=== PATIENT | male | born 1970 | race Caucasian/White ===

== ENCOUNTER 2018-01-04 23:56 | Inpatient (IN) ==
[2018-01-05] MEDS ORDERED: Naloxone 0.4 MG/ML INJ IVP PRN (04:07)
[2018-01-05] MEDS ORDERED: D5% in Water 1,000 ML IVC PRN (04:14)
[2018-01-05] MEDS ORDERED: Dextrose Gel 15 GM/37.5 ML TUBE PO PRN ×2 (04:14)
[2018-01-05] MEDS ORDERED: *HR* Dextrose 50 % in Water (Syg) 50 ML SYRINGE IVP PRN (04:14)
--- NOTE | 2018-01-05 04:18 | Internal Med History&Physical ---
<Ju,Yesi - Last Filed: 01/05/18 05:40> Date of Encounter: 01/05/18 Time of Encounter: 03:00 Assessment and Plan (1) Atypical chest pain Current visit: Yes Status: Acute (2) Elevated troponin Current visit: Yes Status: Acute (3) Hypertension Current visit: No Status: Acute Qualifiers: Hypertension type: unspecified Qualified Code(s): I10 - Essential (primary ) hypertension (4) Hyperglycemia Current visit: No Status: Acute (5) Noncompliance w/medication treatment due to intermit use of medication Current visit: Yes Status: Acute (6) DVT prophylaxis Current visit: Yes Status: Acute Internal Medicine - H&P: HPI Chief complaint: chest pain History of present illness: Mr. Rivera is a 47 year old male transferred from [facility] ED after presenting with c/ o chest pain and weakness. Pt is a poor historian. Pt states his chest pain has been noticeably worse over last two weeks--he admits to chest pain for longer than 2 weeks but doesn't know when it first began and when asked to describe how his chest pain has gotten states he's just had "more chest pain." He describes chest pain as burning and sharp, it started in his left chest but has since become more centrally located on his chest and has "spread" to include his right chest. His pain is better when he sits still and doesn't exert himself , he then states the chest pain has also happened at rest. He is unable to specify how long the pain lasts for and whether or not it's constant versus intermittent. Pt admits to having shortness of breath with his chest pain and provides very nonspecific timeframe for this symptom as well--he's had periods of breathlessness prior to last two weeks, only able to specify it's been going on for "months." Denies associated nausea, vomiting, fever, chills, diaphoresis , abdominal pain. He is not compliant with taking his metformin and anti- hypertensive as prescribed and took himself off these meds--but started taking them again 2 weeks ago. Past Med Surg Social Fam HX - Past Medical History Medical history: diabetes, hyperlipidemia, hypertension, kidney stones Psychiatric history: no psych history - Past Surgical History Surgical History: no surgical history - Social History Smoking Status: Never smoker Smokeless Tobacco Status: No Alcohol use: none Drug use: none Internal Medicine - H&P: Meds Lisinopril [Zestril] 10 mg PO DAILY #30 tablet 09/13/17 [Rx] Metformin HCl [Fortamet] 500 mg PO BID 01/04/18 [History] 3 Allergy/AdvReac Type Severity Reaction Status Date / Time No Known Allergies Allergy Verified 09/13/17 02:48 All Systems PM: A 10-system review of systems was performed and is negative for pertinent findings except as documented above in the HPI. - Constitutional Vitals: Temp Pulse Resp BP Pulse Ox 98.1 F 80 28 141/96 98 01/05/18 01:20 01/05/18 01:20 01/05/18 01:20 01/05/18 01:20 01/05/18 01:20 Internal Med - H&P Results - Labs CBC & Chem 7: 01/05/18 04:28 01/05/18 04:28 <Silas Nguyen - Last Filed: 01/05/18 07:11> Date of Encounter: 01/05/18 Time of Encounter: 04:45 Assessment and Plan (1) NSTEMI (non-ST elevated myocardial infarction) Current visit: No Status: Acute 1. Heparin drip started. 2. ASA, STATIN, BB, NTG PRN. 3. Will cycle troponins and EKG's. 3. ECHO. 4. Consult cardiology as he will need further work up and likely LHC. 5. Medical non-compliance is his biggest barrier to health at the moment. (2) Hypertensive emergency Current visit: Yes Status: Acute 1. BP much better now compared to presentation at [facility] [facility]. Troponin elevation is evidence of end-organ injury. 2. Start Lopressor 25 mg BID; add hydralazine PRN for SBP > 160. 3. Close BP monitoring and medication adjustment as needed. (3) Noncompliance w/medication treatment due to intermit use of medication Current visit: Yes Status: Chronic 1. I had a long heart to heart talk with patient and his girlfriend. He needs to comply with medical advice and take an active role in his health. Otherwise , I anticipate he will not survive the next five years. Patient and girlfriend voiced understanding. (4) Hyperglycemia Current visit: No Status: Acute 1. Will place on SSI, monitor glucose, and adjust dosing as necessary. (5) DVT prophylaxis Current visit: Yes Status: Acute 1. On heparin drip. Internal Medicine - H&P: HPI Admitted From: Hospital to Hospital Transfer Plans for Post Hospital Care: Home History of present illness: Mr. Rivera is a 47 year old male who presents in transfer from [facility]. He presented there with shortness of breath, chest pain, dyspnea on exertion, and uncontrolled hypertension and uncontrolled diabetes. His presenting blood pressure was over 190 systolic and he had an elevated troponin of 0.38. Dr. Freire contacted me requesting transfer to [place] [facility]. I accepted the patient in transfer. Upon arrival, he was seen initially by my resident, Dr. Yin. I discussed the case with her and then saw patient and interviewed him independently as well. Presently, patient has no chest pain or dyspnea. His blood pressure is much better. He did receive some labetalol, insulin, and heparin IV bolus at [facility] [facility] prior to transfer. Patient has a history of hypertension and type 2 diabetes. Unfortunately, over the last 2-3 years, he has stopped taking his medications and has been very noncompliant. He was in the ER [facility] [facility] several months ago as well, and he left the hospital and signed out AMA. This time, however, he agreed to come to the hospital. I discussed with patient and his significant other at length the need to comply with healthcare, medical advice, and to treat his blood pressure and diabetes with care. I emphasized to him that he has multiple risk factors for an ID and stroke and thereof. Patient voiced understanding, but I'm not convinced he will comply with healthcare advice in the future. Past Med Surg Social Fam HX - Past Medical History Attestation: Yes The following information was validated with the patient. Source: patient, old records reviewed Medical history: diabetes, hyperlipidemia, hypertension, kidney stones Psychiatric history: no psych history - Past Surgical History Surgical History: no surgical history - Social History Smoking Status: Never smoker Smokeless Tobacco Status: No Alcohol use: none Drug use: none Occupational status: employed Current living situation: Home, With Family Activity Level: Independent ambulation Recent Out of Country Travel Within the Last 8 Weeks: No - Family History Mother Hx Family Cardiac Disorders: Yes Hx Family Endocrine Disorder: No Father Hx Family Cardiac Disorders: Yes Hx Family Respiratory Disorders: Yes - Constitutional Constitutional: fatigue, no chills, no fever(s), no night sweats - EENT Eyes: no blurry vision, no change in vision Ears: no ear pain, no tinnitus Nose, mouth and throat: no nasal congestion, no sinus pressure, no sore throat - Cardiovascular Cardiovascular ROS IM: chest pain, diaphoresis, dyspnea, dyspnea on exertion, no lightheadedness, no palpitations, no paroxysmal nocturnal dyspnea, no syncope - Respiratory Respiratory: no cough, no hemoptysis, no chest congestion - Gastrointestinal Gastrointestinal: no abdominal pain, no diarrhea, no hematemesis, no hematochezia, no melena, no vomiting - Genitourinary Genitourinary ROS male: no dysuria, no flank pain, no hematuria - Musculoskeletal Musculoskeletal ROS IM: no arthralgias, no back pain - Integumentary Integumentary IM: no rash, no jaundice - Neurological Neurological ROS: no dizziness, no focal weakness, no frequent falls, no headache(s) - Psychiatric Psychiatric: no anxiety, no depression - Endocrine Endocrine IM: polydipsia, polyuria, no polyphagia - Hematologic/Lymphatic Hematologic/Lymphatic: no lymphadenopathy - Allergic/Immunologic Allergic/Immunologic: no wheezing, no GI upset with certain foods - Constitutional Vitals: Temp Pulse Resp BP Pulse Ox 97.6 F 74 20 135/87 98 01/05/18 04:51 01/05/18 04:51 01/05/18 04:51 01/05/18 04:51 01/05/18 04:51 General appearance: Present: cooperative, A&O X 3, pleasant, no acute distress, answers questions appropriately - Head Head exam: Present: normal inspection - Eye Eye exam: Present: EOMI, PERRL. Absent: scleral icterus Pupils: Present: normal accommodation - ENT ENT exam: Present: mucous membranes dry, normal exam - Neck Neck exam general surgery: Present: full ROM, supple. Absent: tenderness, thyromegaly - Respiratory Respiratory exam: Present: CTAB. Absent: chest wall tenderness, rales, respiratory distress, rhonchi, wheezes - Cardiovascular Cardiovascular exam: Present: RRR, +S1, +S2, systolic murmur (grade 2 ). Absent : diastolic murmur - GI/Abdominal GI/Abdominal exam: Present: normal bowel sounds, soft. Absent: hepatomegaly, splenomegaly, tenderness - Extremities Exam Extremities exam: Present: full ROM, normal capillary refill, warm, radial pulses palpable and symmetrical. Absent: calf tenderness, joint swelling, pedal edema, tenderness - Back Exam Back exam: Present: normal inspection. Absent: CVA tenderness (L), CVA tenderness (R) - Neurological Exam Neurological exam: Present: alert, CN II-XII intact, oriented X3, no focal deficits - Psychiatric Psychiatric exam: Present: flat affect - Skin Skin exam: Present: dry, warm. Absent: rash Internal Med - H&P Results - Labs CBC & Chem 7: 01/05/18 04:28 01/05/18 04:28 Labs: Short CBC 01/05/18 Range/Units 04:28 WBC 8.5 (4.3-11.1) K/mcL Hgb 13.6 D (12.9-16.9) g/dL Hct 37.9 (37.5-50.1) % Plt Count 224 (140-400) K/mcL Neutrophils # 5.1 (1.6-8.9) K/mcL BMP 01/05/18 04:28 Sodium 135 L Potassium 3.8 Chloride 103 Carbon Dioxide 23 BUN 24 H Creatinine 0.85 Glucose 290 H Calcium 8.9 Cardiac Enzymes 01/05/18 Range/Units 04:28 Troponin I 0.41 H* (< 0.04) ng/mL - EKG Data -: EKG Interpreted by Myself EKG shows normal: sinus rhythm - EKG Data Prior EKG available for review: no EKG comments: 01/05/18 06:57 NSR with LVH and subtle ST-T changes laterally - Diagnostic Studies Chest x-ray Status: image reviewed by me (negative)
[2018-01-05 04:38] LABS: Basophils # 0.1 K/mcL (0.0-0.2); Basophils % 0.9 %; Eosinophils # 0.2 K/mcL (0.0-0.6); Eosinophils % 1.9 %; Hematocrit 37.9 % (37.5-50.1); Hemoglobin 13.6 g/dL (12.9-16.9); Immature Granulocytes % 0.6 % (0-4); Lymphocytes # 2.5 K/mcL (0.6-4.6); Lymphocytes % 29.2 %; Mean Corpuscular HGB Conc 35.9 g/dL (31.6-35.5); Mean Corpuscular Hemoglobin 28.6 pg (28.0-33.3); Mean Corpuscular Volume 79.6 fL (83.0-100.0); Mean Platelet Volume 11.4 fL (9.4-12.4); Monocytes # 0.6 K/mcL (0.0-1.3); Monocytes % 6.5 %; Neutrophils # 5.1 K/mcL (1.6-8.9); Platelet Count 224 K/mcL (140-400); Red Blood Count 4.76 M/mcL (4.19-5.50); Red Cell Distribution Width 12.6 % (11.5-14.5); Segmented Neutrophils % 60.9 %
[2018-01-05 05:05] LABS: BUN/Creatinine Ratio 28 (6-26); Blood Urea Nitrogen 24 mg/dL (6-20); Calcium 8.9 mg/dL (8.6-10.3); Carbon Dioxide 23 mEq/L (23-29); Chloride 103 mEq/L (98-107); Glucose 290 mg/dL (70-105); Osmolality,Calculated 295 (280-300); Potassium 3.8 mEq/L (3.5-5.1); Sodium 135 mEq/L (136-145); eGFR For African Americans > 60 (> 60); eGFR For Non-African Americans > 60 (> 60)
[2018-01-05] MEDS ORDERED: *HR* Heparin 5,000 UNIT/ML VIAL SQ SCH (06:00)
[2018-01-05] MEDS ORDERED: *HR* Heparin 5,000 UNIT/ML VIAL IVP PRN ×2 (06:07)
[2018-01-05] MEDS: Insulin LISPRO 300 UNITS/3 ML VIAL SQ SCH ×3 (06:38→18:29)
[2018-01-05 06:39] LABS: Hematocrit 37.8 % (37.5-50.1); Hemoglobin 13.4 g/dL (12.9-16.9); Mean Corpuscular HGB Conc 35.4 g/dL (31.6-35.5); Mean Corpuscular Hemoglobin 28.4 pg (28.0-33.3); Mean Corpuscular Volume 80.1 fL (83.0-100.0); Mean Platelet Volume 11.5 fL (9.4-12.4); Platelet Count 207 K/mcL (140-400); Red Blood Count 4.72 M/mcL (4.19-5.50); Red Cell Distribution Width 12.7 % (11.5-14.5)
[2018-01-05] MEDS: Heparin 25,000 UNIT/500 ML D5W 25,000 UNIT/500 ML BAG IVC SCH (06:40)
[2018-01-05 06:45] LABS: Prothrombin Time 10.9 Seconds (9.4-12.1)
[2018-01-05 06:47] LABS: Activated Partial Thrombo Time 29.4 Seconds (26.0-36.0)
[2018-01-05] MEDS: Aspirin Enteric Coated 81 MG Tablet PO SCH (08:54)
[2018-01-05 09:29] LABS: Hemoglobin A1C 10.1 %
--- NOTE | 2018-01-05 09:54 | Cardiology Consult Note ---
<Cayla Segundo - Last Filed: 01/05/18 09:52> Date of Encounter: 01/05/18 Time of Encounter: 08:30 Assessment and Plan (1) NSTEMI (non-ST elevated myocardial infarction) Current Visit: No Status: Acute Per cardiology: -Admitted with typical chest pain symptoms. -Troponins 0.38, 0.41. -On asa, statin, beta pauline, heparin drip. -ECG with SR, ST depressions noted V3, V4. -TTE pending. -Denies current chest pain. -Recommend LHC. Risks versus benefits of LHC explained to patient. Patient states understanding and agreeable to proceed. -Of note, patient reports recently quit taking medications. Discussed with patient regarding possible need for dual anti-platelet therapy uninterrupted for at least one year pending LHC results. Patient states understanding and states he would be compliant with medications if needed. -Further recommendations pending LHC. Discussion w patient/family: The assessment and plan as outlined above was discussed with the patient who expressed understanding and agreement. All questions were answered. Thank you for involving us in the care of your patient. Please call with any questions. Discussed and reviewed with Dr.John Ribera. History of Present Illness Consult date: 01/05/18 Requesting physician: Yesi Dodd Consult reason: NSTEMI Chief complaint: chest pain History of present illness: Mr. Rivera is a 47 year old male with a relevant past medical history of DM, HTN, hyperlipidemia. Patient presented to [facility] with complaints of intermittent exertional chest pain for the past couple of weeks. Patient reports pain relieved with rest. Also reports associated dyspnea on exertion and increased fatigue. Denies current chest pain. Of note, pateint reports recently quit taking his DM and HTN medications because he "felt like I didn't need them." Past Med Surg Social Fam HX - Past Medical History Attestation: Yes The following information was validated with the patient. Source: patient, old records reviewed Medical history: diabetes, hyperlipidemia, hypertension, kidney stones Psychiatric history: no psych history - Past Surgical History Surgical History: no surgical history - Social History Smoking Status: Never smoker Smokeless Tobacco Status: No Alcohol use: none Drug use: none - Family History Mother Hx Family Cardiac Disorders: Yes Hx Family Endocrine Disorder: No Father Hx Family Cardiac Disorders: Yes Hx Family Respiratory Disorders: Yes Medications and Allergies Metformin HCl [Fortamet] 500 mg PO BID 01/04/18 [History] Lisinopril-HCTZ 20-12.5 [Prinzide 20-12.5] 1 tab PO DAILY 01/05/18 [History] Omeprazole [PriLOSEC] 20 mg PO DAILY 01/05/18 [History] 3 Allergy/AdvReac Type Severity Reaction Status Date / Time No Known Allergies Allergy Verified 01/05/18 09:12 All Systems Review: The remainder of the systems were reviewed and are negative - Constitutional Constitutional: fatigue - Cardiovascular Cardiovascular: as per HPI, chest pain with exertion, dyspnea on exertion Physical Examination Vital Signs, Last 4 Hours Temp Pulse Resp BP Pulse Ox 01/05/18 07:23 97.4 F L 67 17 138/86 96 General: Conversant, No Apparent Distress HEENT: Atraumatic, Normocephaly, Mucus Membranes Moist Neck: No JVD, Normal carotid pulses Cardiac: Reg Rate and Rhythm, Normal S1 and S2, No Murmur Lungs: Normal Breath Sounds, No Wheeze, Rales, Rhonchi Neuro: Alert and responsive, No focal deficits noted Abdomen: Soft, Non-Tender Skin: No rashes noted on visualized skin Musculoskeletal: No Chest Wall Tenderness Extremities: No Clubbing, No Cyanosis, No Edema, Normal Pulses Results 01/05/18 06:17 01/05/18 04:28 Lab Results Active Medications Aspirin (Aspirin Ec) 81 mg PO DAILY ESPINOZA Stop: 07/07/18 09:01 Last Admin: 01/05/18 08:54 Dose: 81 mg Atorvastatin Calcium (Lipitor) 80 mg PO HS ESPINOZA Stop: 07/07/18 21:01 Dextrose/Water (Dextrose 50% (Syg)) 25 ml IVP AD PRN PRN Reason: Hypoglycemia Stop: 07/07/18 04:15 Glucagon (Glucagen) 1 mg IM ONCE PRN PRN Reason: Hypoglycemia Stop: 07/07/18 04:15 Glucose (Gluctose) 15 gm PO ONCE PRN PRN Reason: Hypoglycemia Stop: 07/07/18 04:15 Glucose (Gluctose) 30 gm PO ONCE PRN PRN Reason: Hypoglycemia Stop: 07/07/18 04:15 Heparin Sodium (Porcine) (Heparin) 4,000 unit IVP Q6HR PRN PRN Reason: SEE COMMENTS Stop: 07/07/18 06:08 Heparin Sodium (Porcine) (Heparin) 2,000 unit IVP Q6H PRN PRN Reason: SEE COMMENTS Stop: 07/07/18 06:08 Hydralazine HCl (Hydralazine) 10 mg IVP Q6HR PRN PRN Reason: Hypertension Stop: 07/07/18 05:02 Dextrose (Dextrose 5%) 1,000 mls @ 100 mls/hr IVC .Q10H PRN PRN Reason: HYPOGLYCEMIA Stop: 07/07/18 04:15 Heparin Sodium/Dextrose (Heparin 25,000 Unit/500 Ml D5w) 25,000 unit in 500 mls @ 20.01 mls/hr IVC .Q24H ESPINOZA; 10.2 UNIT/KG/HR PRN Reason: Protocol Stop: 07/07/18 06:16 Last Admin: 01/05/18 06:40 Dose: 10.2 unit/kg/hr, 20.01 mls/hr Insulin Human Lispro (Humalog) 0 units SQ Q6HR ESPINOZA PRN Reason: Protocol Stop: 07/07/18 06:01 Last Admin: 01/05/18 06:38 Dose: 8 units Metoprolol Tartrate (Lopressor) 25 mg PO BID ESPINOZA Stop: 07/07/18 09:01 Last Admin: 01/05/18 08:54 Dose: 25 mg Naloxone HCl (Narcan) 0.4 mg IVP Q2MIN PRN PRN Reason: SEE COMMENTS Stop: 07/07/18 04:08 Laboratory Tests 01/04/18 01/05/18 01/05/18 22:04 04:28 04:28 Hgb 13.6 D Creatinine Troponin I 0.38 H* 0.41 H* 01/05/18 04:28 Hgb Creatinine 0.85 Troponin I - Imaging and Cardiology Chest Xray: report reviewed Echo: pending Cardiac cath: pending - EKG Interpretation EKG results cardiology: personally reviewed (ECG with SR, ST depressions noted in leads V3 and V4.), other (Telemetry reviewed with average HR previous 12 hours noted to be 71, SR. PVCs noted.) Consult Discharge Plan - Plan Referrals: Mary Bland, [facility] [Primary Care Provider] - Louis Price CNP [Family Provider] - <Peyman Ribera - Last Filed: 01/05/18 11:23> Date of Encounter: 01/05/18 - Attending Attestation I have personally performed a face to face evaluation on this patient. I have reviewed and agree with the care plan. History and Exam by me shows: Chest pain, abnormal enzymes. Multiple risk factors for CAD. Recommend left heart cath, he agrees. Assessment and Plan Discussion w patient/family: The assessment and plan as outlined above was discussed with the patient and/or family members who expressed understanding and agreement. All questions were answered. Thank you for involving us in the care of your patient. Please call with any questions. History of Present Illness History of present illness: Mr. Rivera is a 47 year old male All Systems Review: The remainder of the systems were reviewed and are negative Physical Examination Vital Signs, Last 4 Hours Temp Pulse Resp BP Pulse Ox 01/05/18 10:57 97.6 F 60 17 126/80 97 01/05/18 07:23 97.4 F L 67 17 138/86 96 Results 01/05/18 06:17 01/05/18 04:28 Lab Results 01/05/18 01/05/18 01/05/18 04:28 04:28 04:28 WBC 8.5 Hgb 13.6 D Hct 37.9 Plt Count 224 INR APTT Sodium 135 L Potassium 3.8 Chloride 103 Carbon Dioxide 23 BUN 24 H Creatinine 0.85 Glucose 290 H Calcium 8.9 Troponin I 0.41 H* 01/05/18 01/05/18 01/05/18 06:17 06:17 09:52 WBC 8.0 Hgb 13.4 Hct 37.8 Plt Count 207 INR 1.0 APTT 29.4 Sodium Potassium Chloride Carbon Dioxide BUN Creatinine Glucose Calcium Troponin I 0.37 H*
[2018-01-05] MEDS ORDERED: 0.9 % Sodium Chloride 1,000 ML ONE ×2 (12:48→13:16)
[2018-01-05] MEDS ORDERED: *HR* Heparin 10,000 UNIT/10 ML VIAL ONE (12:48)
[2018-01-05] MEDS ORDERED: ISOVUE-370 200 ML INFUS..BTL IV ONE (12:48)
[2018-01-05] MEDS ORDERED: Heparin 1,000 UNITS/500 mL 500 ML ONE (12:48)
[2018-01-05] MEDS ORDERED: Verapamil 5 MG/2 ML VIAL ONE (13:17)
[2018-01-05] MEDS ORDERED: Nitroglycerin 1,000 MCG/10 ML VIAL IV ONE (13:17)
[2018-01-05] MEDS ORDERED: *HR* Midazolam HCl 2 MG/2 ML VIAL ONE (13:19)
[2018-01-05] MEDS ORDERED: *HR* FentaNYL (PF) 100 MCG/2 ML VIAL ONE (13:20)
--- NOTE | 2018-01-05 13:33 | Pre-Sedation Evaluation ---
Pre-sedation evaluation - Pre-sedation checklist Date of procedure: 01/05/18 Procedure: heart cath Recent Vitals: Last Vital Signs Temp 97.6 F 01/05/18 10:57 Pulse 60 01/05/18 10:57 Resp 17 01/05/18 10:57 BP 126/80 01/05/18 10:57 Pulse Ox 97 01/05/18 10:57 H&P (including ROS) documented in medical record: Yes Previous reaction to sedatives/anesthetics: No Dietary Status: NPO after Midnight Dentition: No loose teeth or bridges ASA Classification *see protocol: CLASS II-Mild systemic disease Plan of Care: Pt appropriate candidate for procedure/moderate/conscious sedation , Risks/benefits of procedure/sedation discussed w/ patient/family
--- NOTE | 2018-01-05 14:18 | Invasive Diagnostic Lab Proc ---
Name: Moise Rivera Date of Study: 01/05/2018 Date: 1970 Ht: 72.8in Medical Record#: [id number] Age: 47 Wt: 216.05lb Gender: Male BSA: 2.22 Order #: [id number] BMI: 28.63 Physicians Procedure Physician: Josh Loera MD, FACC Referring MD: Louis Price, [employer]PAREL PATTERNMAKER Referring MD: Staff Name Position Time In Pavel Quigley RN Monitor 01:23 PM Kiki Peterson RN Basket Turner 01:23 PM Grey Hodges RN Basket Turner 01:23 PM Roberto Ayoub RT (R) Scrub 01:23 PM Indications Indication Non-Stemi Procedures Performed Procedure L HRT ARTERY/VENTRICLE ANGIO Pre-Procedure Checklist Informed consent is complete signed and on chart. H&P is on chart. ID band is on and ID verified with patient. Patient NPO for procedure The procedure was described for the patient and questions were answered. Blood Pressure: 138/86 ECG is on chart. Rhythm: NSR Plan of Care Patient will tolerate the procedure without complications. Adequate level of comfort will be maintained. Hemodynamics will remain stable Patient will recover from procedure without complications. Respiratory function will be maintained. Cardiac rhythm will remain stable. Patient temperature will be maintained. Patient and/or family have verbalized understanding of the procedure. Patient Education Chief Complaint/Reason for Test: Cardiac Cath Developmental Category: Adult (18-64 years) Developmentally Appropriate for Age: Yes Learning Barriers: None Education Needs: Procedure Education Method: Verbal Information Taught: Cardiac Cath Educational Evaluation: Able to repeat information Intravenous Access Time IV Size Location DC'd Fluid/Drip Rate Units RN 12:49 PM 20g 1 /" Patent On Arrival Rt Antecubital 0.9NaCl 25 ml/hr Kiki Peterson RN Allergies No Known Allergies Vital Signs Time BP (mmHg) HR (bpm) O2 Sat. RR (bpm) LOC 12:50 PM 138 / 86 67 96 % 16 5 = Fully awake and oriented or at pre-proc level 01:24 PM / % 5 = Fully awake and oriented or at pre-proc level 01:24 PM / % 5 = Fully awake and oriented or at pre-proc level 01:39 PM / % 4 = Oriented but drowsy 01:27 PM 163 / 117 70 100 % 29 01:31 PM 141 / 99 72 99 % 18 01:36 PM 137 / 90 66 99 % 19 01:41 PM 137 / 88 68 98 % 14 01:46 PM 127 / 78 67 97 % 13 01:51 PM 135 / 89 68 98 % 16 01:56 PM 131 / 89 67 98 % 13 02:01 PM 135 / 90 68 98 % Procedural Medications Time Medication Dose Units Method Given By 01:23 PM Oxygen 2 L/min nasal cannula Kiki Peterson RN 01:29 PM Versed 2 mg Intravenous Grey Hodges RN 01:31 PM Fentanyl 50 mcg Intravenous Grey Hodges RN 01:39 PM Lidocaine 2% 0.5 ml Subcutaneous Josh Loera MD, FAC 01:41 PM Heparin 2000 units Nitroglycerin 200 mcg Verapamil 2.5 mg Intraarterial Josh Loera MD, [facility] ASA Classification: CLASS II- Mild systemic disease (i.e. well-controlled diabetes, hypertension, asthma, cigarette smoking) Aishwarya Score Preprocedure Postprocedure Activity 2- Moves 4 extremities sustained head lift Activity 2- Moves 4 extremities sustained head lift Circulation 2- SBP +/= 20 points of pre-anesthetic level Circulation 2- SBP +/= 20 points of pre-anesthetic level Consciousness 2- Awake and alert oriented x 3 Consciousness 2- Awake and alert oriented x 3 O2 Saturation 2- Able to maintain O2 satruation of 92% on room air O2 Saturation 2- Able to maintain O2 satruation of 92% on room air Respiratory 2- Able to deep breathe and cough well Respiratory 2- Able to deep breathe and cough well Total Score 10 Total Score 10 Contrast Agent: Isovue Diagnostic Contrast: 47 ml Total Contrast: 47 ml Fluoro Dose: 381 mGy Procedure Log Time Note Enter By 01:17 PM CathStat 01:23 PM Pt arrived to slab installer 2 at 13:23 csmith 01:23 PM Pavel Quigley RN Position: Monitor Time in: 13:23 csmith 01:23 PM Kiki Peterson RN Position: Basket Turner Time in: 13:23 csmith 01:23 PM Grey Hodges RN Position: Basket Turner Time in: 13:23 csmith 01:23 PM Roberto Ayoub RT (R) Position: Scrub Time in: 13:23 csmith 01:23 PM Patient charges- Angio tray pack, Navilyst 3mm J, Pulse Oximetry and ACIST tubing and transducer csmith 01:23 PM Hair removed from procedure site in procedure lab using clippers. Right wrist & right groin prepped with Chloraprep by Grey Hodges RN, then patient was draped. Skin intact. csmith : PM Physician arrived : csmith : PM Meet and greet completed csmith : PM Sign in performed according to hospital policy. csmith : PM Procedure start : csmith : PM Time: : Oxygen on at 2 L/min per nasal cannula by Kiki Peterson RN csmith : PM Time: 13: Patient comfortable and pain free: Yes csmith : PM Time: :LOC: 5 = Fully awake and oriented or at pre-proc level csmith : PM NTG paste removed from chest csmith : PM Case Start : PM Vitals capture started with the following parameters, Patient=Adult, Interval=5 min, Initial Vvifcoev=197 mmHg, Deflation Rate=5 mmHg, Cuff placed on Right Arm 01: PM Vitals capture started with the following parameters, Patient=Adult, Interval=5 min, Initial Rsnvymzc=761 mmHg, Deflation Rate=5 mmHg, Cuff placed on Right Arm 01:27 PM HR=70 bpm, MEKO=128/117 mmhg, MdJ1=328.0 %, Resp=29 B/min 01:31 PM HR=72 bpm, TTCX=921/99 mmhg, SpO2=99.0 %, Resp=18 B/min 01:31 PM Time: 13:29 Versed 2 mg Intravenous Given by Grey Hodges RN csmith :31 PM Time: 13:31 Fentanyl 50 mcg Intravenous Given by Grey Hodges RN csmith 01:36 PM HR=66 bpm, HHEA=773/90 mmhg, SpO2=99.0 %, Resp=19 B/min, Comment=nsr 01:37 PM Pressure channel 1 zeroed. :39 PM Time: :24LOC: 5 = Fully awake and oriented or at pre-proc level csmith :39 PM Time: 13:23 Patient comfortable and pain free: Yes csmith :39 PM Time out performed according to hospital policy csmith :39 PM Time: 13:39 0.5 ml Lidocaine 2% to right radial Subcutaneous Given by Josh Loera MD, [facility] csmith 01:41 PM Access obtained by percutaneous puncture. 5/6Fr 11cm Terumo Glidesheath sheath placed in right radial artery. [id number] csmith 01:41 PM Time: 13:41 Patient given 2000 units Heparin, 200 mcg Nitroglycerin, and 2.5 mg Verapamil Intraarterial by Josh Loera MD, [facility]. This is given to reduce risk of vessel spasm and thrombosis. csmith 01:41 PM HR=68 bpm, IKQM=929/88 mmhg, SpO2=98.0 %, Resp=14 B/min, Comment=nsr 01:42 PM 5Fr TIG catheter inserted over the wire [facility] csmith 01:42 PM 0.035 260cm Navilyst 3mmJ wire [id number] csmith 01:43 PM Recorded Pressure: Ao, HR=68, Condition=Condition 1 (Aorta) Ao 92/66/80 01:44 PM Catheter removed csmith 01:44 PM 5Fr AR1 catheter inserted over the wire [id number] csmith 01:46 PM HR=67 bpm, ELEM=784/78 mmhg, SpO2=97.0 %, Resp=13 B/min, Comment=sr 01:48 PM Lesion found in Proximal RCA. Pre Stenosis: 70 Pre AUREA Flow: 3: Complete and Brisk Flow/Perfusion csmith 01:48 PM Lesion found in Mid RCA. Pre Stenosis: 60 Pre AUREA Flow: 3: Complete and Brisk Flow/Perfusion csmith 01:48 PM Lesion found in Distal RCA. Pre Stenosis: 95 Pre AUREA Flow: 3: Complete and Brisk Flow/Perfusion csmith 01:48 PM Catheter removed csmith 01:49 PM 5Fr FL3.5 catheter inserted over the wire [id number] csmith 01:49 PM Coronary Dominance: right csmith 01:51 PM LCA angiography performed in multiple views. csmith 01:51 PM Conversation between Interventionalist and CT Surgeon. csmith 01:51 PM HR=68 bpm, SGVZ=765/89 mmhg, SpO2=98.0 %, Resp=16 B/min 01:51 PM Lesion found in Proximal LAD. Pre Stenosis: 95 Pre AUREA Flow: 3: Complete and Brisk Flow/Perfusion csmith 01:51 PM Lesion found in Mid LAD. Pre Stenosis: 70 Pre AUREA Flow: 3: Complete and Brisk Flow/Perfusion csmith 01:51 PM Lesion found in Mid Circumflex. Pre Stenosis: 95 Pre AUREA Flow: 3: Complete and Brisk Flow/Perfusion csmith 01:52 PM Catheter removed csmith 01:53 PM [address] case with Dr. Jj csmith 01:54 PM Time: 13:39 Patient comfortable and pain free: Yes csmith 01:54 PM Time: 13:39LOC: 4 = Oriented but drowsy csmith 01:55 PM Pressure channel 1 zero failed. 01:55 PM Pressure channel 1 zeroed. 01:55 PM 5Fr Pigtail catheter inserted over the wire DNC csmith 01:55 PM Recorded Pressure: LV, HR=71, Condition=Condition 1 (Left Ventricle) LV 136/10/19 01:55 PM Bolus angiogram of left Ventricle complete: 10 ml/sec for a total of 30 mls csmith 01:56 PM Catheter removed csmith 01:56 PM HR=67 bpm, VOXC=708/89 mmhg, SpO2=98.0 %, Resp=13 B/min 01:56 PM Recorded Pressure: LV, Ao, HR=65, Condition=Condition 1 (Left Ventricle) LV 134/11/23, (Aorta) Ao 149/99/120 01:57 PM Wire removed csmith 02:01 PM HR=68 bpm, EQOB=175/90 mmhg, SpO2=98.0 % 02:02 PM Procedure completed at 14:02 csmith 02:02 PM Did you address AUREA flow and Dominance? Yes csmith 02:03 PM Sign out completed: Radiation Dose 381 mGy Fluoro Time: 4.4 Isovue 370 - 200ml contrast 47 ml given by Josh Loera MD, [facility]. Complications: NoneCardiac Rehab Consult needed: YesConfirmed administered medications: Yes csmith 02:03 PM Isovue 370 - 200ml,1 Bottle(s) used. csmith 02:03 PM Arterial sheath pulled, Vasc Band closure device used and was Successful S/N. csmith 02:03 PM 13 ml air in Vasc Band. csmith 02:03 PM Estimated Blood Loss: minimal csmith 02:03 PM Post ECG NSR csmith 02:03 PM Post Blood Pressure 135/90 csmith 02:03 PM 14:03 Post Pulses Right radial 2+ csmith 02:03 PM Information taught Cardiac Cath and Vasc Band csmith 02:03 PM Education needs Responsibilities of Patient in Care csmith 02:03 PM Learning barriers :None csmith 02:03 PM Education Methods Verbal csmith 02:03 PM Education evaluation Able to repeat information csmith 02:04 PM Site status No bleeding/hematoma - Rt Wrist as reported by Roberto Ayoub RT (R) at 14:03 csmith 02:04 PM Plavix, Effient or Brilinta given No csmith 02:05 PM Family placed in consult room. csmith Complications Complication None Hemodynamics Pressures Site Systolic/A Wave Diastolic/V Wave Mean AO 92 66 80 LV 136 10 19 LV 134 11 23 AO 149 99 120 Post Procedure Information Blood Pressure: 135/90 mmHg Rhythm: NSR Post procedural instructions were given Surgery consult for CABG Closure Device Time Device Success/Fail Mechanical Compression Successful Site Checks Time Location Status Staff Sheath In? Note 02:03 PM Rt Wrist No bleeding/hematoma Roberto Ayoub RT (R) Pulses Time Site Pre-Procedure Post-Procedure Note 01/05/2018 12:49:00 PM Bilateral DP & PT & radial 2+ 2:03:00 PM Right radial 2+ Updated by Pavel Quigley RN on 01/05/2018 2:09:52 PM electronically signed on 01/05/2018 2:10:36 PM with status of Final
[2018-01-05] MEDS ORDERED: Insulin LISPRO 300 UNITS/3 ML VIAL SQ SCH (21:00)
[2018-01-06 05:23] LABS: BUN/Creatinine Ratio 20 (6-26); Blood Urea Nitrogen 18 mg/dL (6-20); Calcium 8.8 mg/dL (8.6-10.3); Carbon Dioxide 27 mEq/L (23-29); Chloride 103 mEq/L (98-107); Glucose 203 mg/dL (70-105); Osmolality,Calculated 292 (280-300); Sodium 137 mEq/L (136-145); eGFR For African Americans > 60 (> 60); eGFR For Non-African Americans > 60 (> 60)
[2018-01-06] MEDS: Heparin 25,000 UNIT/500 ML D5W 25,000 UNIT/500 ML BAG IVC SCH (05:29)
--- NOTE | 2018-01-06 08:02 | Cardiology Progress Note ---
Date of Encounter: 01/06/18 Time of Encounter: 08:00 Assessment and Plan (1) NSTEMI (non-ST elevated myocardial infarction) Current Visit: Yes Status: Acute Per cardiology: -Admitted with typical chest pain symptoms. -Troponins 0.38, 0.41. -On asa, statin, beta pauline, heparin drip. -ECG with SR, ST depressions noted V3, V4. -TTE EF 50%, Mild segmental left ventricular systolic dysfunction, Mild asymmetric hypertrophy of the basal septum. No obstruction, Mild LVDD. Atypical septal motion consistent with bundle branch block. Normal right ventricular structure and function. No evidence of pulmonary hypertension. No significant valvular dysfunction. -Denies current chest pain. -S/P LHC yesterday with reported 3 vessel CAD. Final cath report pending. CT surgery recommended, not yet evaluated. -Anticipate sign off once seen and evaluated by CT surgery. (2) CAD (coronary artery disease) Current Visit: Yes Status: Acute Per cardiology: -As above, LHC yesterday with 3 vessel CAD, CT surgery recommended. -ASA, Statin, BB. Qualifiers: Coronary Disease-Associated Artery/Lesion type: [place] artery [place] vs. transplanted heart: [place] heart Associated angina: angina presence unspecified Qualified Code(s): I25.10 - Atherosclerotic heart disease of [place] coronary artery without angina pectoris Discussion w patient/family: The assessment and plan as outlined above was discussed with the patient and/or family members who expressed understanding and agreement. All questions were answered. Thank you for involving us in the care of your patient. Please call with any questions. I will discuss all the above with Dr. Peyman Ribera and make changes as necessary. Subjective Principal diagnosis: NSTEMI, CAD Interval history: S/P LHC yesterday for NSTEMI. LHC reportedly showed [address] surgery consult recommended. Final cath report is pending. TTE EF 50%, Mild segmental left ventricular systolic dysfunction, Mild asymmetric hypertrophy of the basal septum. No obstruction, Mild LVDD. Atypical septal motion consistent with bundle branch block. Normal right ventricular structure and function. No evidence of pulmonary hypertension. No significant valvular dysfunction. Pt denies chest pain overnight. Denies dyspnea at rest, but reports dyspnea on exertion. Objective Vital Signs, Last 4 Hours Temp Pulse Resp BP Pulse Ox 01/06/18 07:14 98.0 F 59 16 132/83 98 03/10/18 04:13 97.8 F 69 17 136/93 96 Vital Signs Temp Pulse Resp BP Pulse Ox 01/06/18 07:14 98.0 F 59 16 132/83 98 01/06/18 04:13 97.8 F 69 17 136/93 96 01/05/18 23:28 97.8 F 65 16 137/89 96 01/05/18 20:17 97.7 F 67 18 146/93 95 01/05/18 18:07 98 F 66 18 127/81 95 01/05/18 16:12 98.0 F 62 16 116/75 97 01/05/18 16:03 98 F 62 18 116/75 95 01/05/18 15:30 98 F 63 18 129/88 95 01/05/18 15:00 98 F 69 18 149/91 95 01/05/18 14:25 98 F 66 16 133/86 95 01/05/18 12:15 98 F 66 16 125/86 01/05/18 10:57 97.6 F 60 17 126/80 97 Intake and Output 01/05/18 01/06/18 01/06/18 23:59 07:59 15:59 Intake Total 944 / 944 356 / 356 Balance 944 / 944 356 / 356 Intake: IV Fluids 144 / 144 356 / 356 Heparin 25,000 UNIT/500 ML D5W 144 / 144 356 / 356 25,000 unit In 500 ml @ 10.2 UNIT/KG/HR 20.01 mls/hr IVC . Q24H [facility] Rx#:[id number] Free Water 800 / 800 Other: # Voids 0 # Bowel Movements 0 Weight 96.785 kg Blood Glucose* 213 244 Patient Weight 01/06/18 23:59 Weight 96.785 kg General: Conversant, No Apparent Distress HEENT: Atraumatic, Normocephaly, Mucus Membranes Moist Neck: No JVD, Normal carotid pulses Cardiac: Reg Rate and Rhythm, Normal S1 and S2, No Murmur Lungs: Normal Breath Sounds, No Wheeze, Rales, Rhonchi Neuro: Alert and responsive, No focal deficits noted Abdomen: Soft, Non-Tender Skin: Other (right radial access site healing well. No bleeding, hematoma or ecchymosis noted.) Musculoskeletal: No Chest Wall Tenderness Extremities: No Clubbing, No Cyanosis, No Edema, Normal Pulses Results 01/05/18 06:17 01/06/18 04:03 Lab Results 01/05/18 01/05/18 01/05/18 09:52 13:02 15:33 APTT 39.2 H Sodium Potassium Chloride Carbon Dioxide BUN Creatinine Glucose Calcium Troponin I 0.37 H* 0.41 H* 01/05/18 01/06/18 01/06/18 21:09 04:03 04:03 APTT 38.9 H 60.6 H D Sodium 137 Potassium 4.0 Chloride 103 Carbon Dioxide 27 BUN 18 Creatinine 0.90 Glucose 203 H Calcium 8.8 Troponin I BMP 01/06/18 Range/Units 04:03 Sodium 137 (136-145) mEq/L Potassium 4.0 (3.5-5.1) mEq/L Chloride 103 (98-107) mEq/L Carbon Dioxide 27 (23-29) mEq/L BUN 18 (6-20) mg/dL Creatinine 0.90 (0.70-1.30) mg/dL Glucose 203 H (70-105) mg/dL Calcium 8.8 (8.6-10.3) mg/dL Cardiac Enzymes 01/05/18 01/05/18 Range/Units 15:33 09:52 Troponin I 0.41 H* 0.37 H* (< 0.04) ng/mL Impressions Echocardiogram 01/05/18 04:32 Impressions: LVEF 50%. Normal LV chamber size and function. Mild segmental left ventricular systolic dysfunction. Mild asymmetric hypertrophy of the basal septum. No obstruction. Mild left ventricular diastolic dysfunction. Atypical septal motion consistent with bundle branch block. Normal right ventricular structure and function. No evidence of pulmonary hypertension. No significant valvular dysfunction. Left Ventricular Wall Motion: Rest Echo Findings The apical septal and mid anterior septal taylor were hypokinetic. All other wall segments showed normal motion. Findings: Study Quality * Technically adequate exam. ECG Findings * Normal sinus rhythm. Left Ventricle Active Medications Aspirin (Aspirin Ec) 81 mg PO DAILY ESPINOZA Stop: 07/07/18 09:01 Last Admin: 01/05/18 08:54 Dose: 81 mg Atorvastatin Calcium (Lipitor) 80 mg PO HS ESPINOZA Stop: 07/07/18 21:01 Last Admin: 01/05/18 21:58 Dose: 80 mg Dextrose/Water (Dextrose 50% (Syg)) 25 ml IVP AD PRN PRN Reason: Hypoglycemia Stop: 07/07/18 04:15 Glucagon (Glucagen) 1 mg IM ONCE PRN PRN Reason: Hypoglycemia Stop: 07/07/18 04:15 Glucose (Gluctose) 15 gm PO ONCE PRN PRN Reason: Hypoglycemia Stop: 07/07/18 04:15 Glucose (Gluctose) 30 gm PO ONCE PRN PRN Reason: Hypoglycemia Stop: 07/07/18 04:15 Heparin Sodium (Porcine) (Heparin) 4,000 unit IVP Q6HR PRN PRN Reason: SEE COMMENTS Stop: 07/07/18 06:08 Last Admin: 01/05/18 22:08 Dose: 4,000 unit Heparin Sodium (Porcine) (Heparin) 2,000 unit IVP Q6H PRN PRN Reason: SEE COMMENTS Stop: 07/07/18 06:08 Hydralazine HCl (Hydralazine) 10 mg IVP Q6HR PRN PRN Reason: Hypertension Stop: 07/07/18 05:02 Dextrose (Dextrose 5%) 1,000 mls @ 100 mls/hr IVC .Q10H PRN PRN Reason: HYPOGLYCEMIA Stop: 07/07/18 04:15 Heparin Sodium/Dextrose (Heparin 25,000 Unit/500 Ml D5w) 25,000 unit in 500 mls @ 20.01 mls/hr IVC .Q24H ESPINOZA; 10.2 UNIT/KG/HR PRN Reason: Protocol Stop: 07/07/18 06:16 Last Admin: 01/06/18 05:29 Dose: 14.27 unit/kg/hr, 28 mls/hr Insulin Human Lispro (Humalog) 0 units SQ HS ESPINOZA PRN Reason: Protocol Stop: 07/07/18 21:01 Last Admin: 01/05/18 21:57 Dose: 2 units Insulin Human Lispro (Humalog) 0 units SQ TIDAC ESPINOZA PRN Reason: Protocol Stop: 07/08/18 07:31 Metoprolol Tartrate (Lopressor) 25 mg PO BID ESPINOZA Stop: 07/07/18 09:01 Last Admin: 01/05/18 21:58 Dose: 25 mg Naloxone HCl (Narcan) 0.4 mg IVP Q2MIN PRN PRN Reason: SEE COMMENTS Stop: 09/08/18 04:08 * LVEF 50%. * Normal LV chamber size and function. * Mild asymmetric hypertrophy of the basal septum. No obstruction. * Mild segmental left ventricular systolic dysfunction. * Mild left ventricular diastolic dysfunction. * Atypical septal motion of unclear etiology. Right Ventricle * Normal right ventricular structure and function. Left Atrium * Mildly dilated left atrium. Right Atrium * Mildly dilated right atrium. Interatrial Septum * Interatrial septum not well evaluated. Aortic Valve * Trileaflet aortic valve with normal function. * No aortic regurgitation. * No aortic stenosis. Mitral Valve * Normal mitral valve structure and function. * No mitral stenosis. * No mitral regurgitation. Tricuspid Valve * Normal tricuspid valve structure and function. * Trace tricuspid regurgitation. * No evidence of pulmonary hypertension. Pulmonic Valve * Normal pulmonic valve structure and function. * No pulmonic regurgitation. Aorta * Normally sized aortic root. Pericardium * The pericardium appears normal. IVC * Normal IVC dimensions and inspiratory collapse. Pulmonary Artery * Normal visualized portions of the main pulmonary artery. - Imaging and Cardiology Echo: report reviewed Cardiac cath: report reviewed - EKG Interpretation EKG results cardiology: other (12 hr tele AVG HR 63, SR, no significant pauses or arrhythmias noted.) - VTE Reasons for not Prescribing Prophylaxis: Not indicated-Anticoagulated or INR therapeutic Consult Discharge Plan - Plan Referrals: Mary Bland CNP [Primary Care Provider] - Louis Price CNP [Family Provider] -
--- NOTE | 2018-01-06 09:17 | Cardiothoracic Consult Note ---
Date of Encounter: 01/06/18 Time of Encounter: 09:09 Assessment and Plan (1) CAD (coronary artery disease) Current Visit: Yes Status: Acute The patient is a 47-year-old type II diabetic, hypertensive man who was admitted to [facility] with a diagnosis of an acute NSTEMI. He underwent cardiac catheterization yesterday was found to have severe 3 vessel CAD LVEF 45-50%. The patient has been recommended for CABG. I concur with this recommendation. The STS risk calculator shows an operative risk mortality 0.26%, deep sternal wound infection risk 0.21%, permanent stroke risk 0.31%, renal failure risk 0.88%, and reoperation risk 2.41%. The patient understands the procedure, benefits, alternatives, and risks, and gives his informed consent. The procedure will be performed either Saturday, January 06, 2018 or Sunday, January 07, 2018. The assessment and plan as outlined above was discussed with the patient and/or family members who expressed understanding and agreement. All questions were answered. Qualifiers: Coronary Disease-Associated Artery/Lesion type: [place] artery [place] vs. transplanted heart: [place] heart Associated angina: angina presence unspecified Qualified Code(s): I25.10 - Atherosclerotic heart disease of [place] coronary artery without angina pectoris - History of Present Illness Consult date: 01/05/18 Requesting physician: Josh Loera Consult reason: CABG evaluation Chief complaint: NSTEMI History of present illness: Mr. Rivera is a 47 year old type II diabetic, hypertensive man with hypercholesterolemia who was transferred to [facility] from [facility] with the diagnosis of an acute NSTEMI. The patient is very active; however, began experiencing exertional substernal chest pain and shortness of breath several months ago. Initially, he had a severe episode of substernal chest pain while carrying boxes up stairs while moving in January 2017. The patient had associated shortness of breath and diaphoresis, but recovered fairly rapidly from the episode. He states that he walks several miles each day, it in August 2017 began experiencing exertional substernal chest pain and shortness of breath, particularly with running. The symptoms became more frequent and severe. In November 2017 the patient was evaluated at [facility] and was recommended for cardiac workup. He declined at that time. 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 On December , the patient had severe substernal chest pain radiating to his left arm and shortness of breath while shopping. He rested in his car for several minutes until the symptoms resolved and then was evaluated at [facility]. He was found to have elevated troponin I levels consistent with an acute NSTEMI. He was treated medically and transferred to the original [facility] for further cardiac care. The patient underwent a transthoracic echocardiogram which revealed an LVEF 50% with normal left ventricular size and function. No valvular dysfunction was noted. He underwent cardiac catheterization yesterday and was found to have severe 3 vessel CAD LVEF 45-50%. In particular the patient has a 95% proximal LAD lesion, a 70% mid LAD lesion, a 95% mid LCx lesion, a 70% proximal RCA lesion, a 70% mid RCA lesion, and a 95% distal RCA lesion. The patient has been recommended for urgent CABG. Past Med Surg Social Fam HX - Past Medical History Medical history: coronary artery disease, diabetes, hyperlipidemia, hypertension , kidney stones Psychiatric history: no psych history - Past Surgical History Surgical History: no surgical history - Social History Smoking Status: Never smoker Smokeless Tobacco Status: No Alcohol use: none Drug use: none Occupational status: employed Current living situation: Home - Independent Activity Level: Independent ambulation, Very active Recent Out of Country Travel Within the Last 8 Weeks: No Exposure or Possible Exposure to Illness During Travel: No - Family History Mother Hx Family Cardiac Disorders: Yes Hx Family Endocrine Disorder: No Father Hx Family Cardiac Disorders: Yes Hx Family Respiratory Disorders: Yes Medications and Allergies Metformin HCl [Fortamet] 500 mg PO BID 01/04/18 [History] Lisinopril-HCTZ 20-12.5 [Prinzide 20-12.5] 1 tab PO DAILY 01/05/18 [History] Omeprazole [PriLOSEC] 20 mg PO DAILY 01/05/18 [History] 3 Allergy/AdvReac Type Severity Reaction Status Date / Time No Known Allergies Allergy Verified 01/05/18 09:12 All Systems Review: The remainder of the systems were reviewed and are negative Physical Examination Vital Signs, Last 4 Hours Temp Pulse Resp BP Pulse Ox 01/06/18 07:14 98.0 F 59 16 132/83 98 General: Conversant, No Apparent Distress Neck: No JVD, Normal carotid pulses Cardiac: Reg Rate and Rhythm, Normal S1 and S2, No Murmur Lungs: Normal Breath Sounds, No Wheeze, Rales, Rhonchi Neuro: Alert and responsive, No focal deficits noted Vascular: Normal capillary refill Abdomen: Soft, Non-tender Skin: No rashes noted on visualized skin Musculoskeletal: No Chest Wall Tenderness Extremities: No Clubbing, No Cyanosis, No Edema, Normal Pulses Results 01/05/18 06:17 01/06/18 04:03 Lab Results, Last 24 hours 01/05/18 01/05/18 01/05/18 09:52 13:02 15:33 APTT 39.2 H Sodium Potassium Chloride Carbon Dioxide BUN Creatinine Glucose Calcium Troponin I 0.37 H* 0.41 H* 01/05/18 01/06/18 01/06/18 21:09 04:03 04:03 APTT 38.9 H 60.6 H D Sodium 137 Potassium 4.0 Chloride 103 Carbon Dioxide 27 BUN 18 Creatinine 0.90 Glucose 203 H Calcium 8.8 Troponin I Consult Discharge Plan - Plan Referrals: Mary Bland CNP [Primary Care Provider] - Louis Price CNP [Family Provider] -
[2018-01-06] MEDS ORDERED: CeFAZolin Syr 2,000MG/20 ML 2,000 MG/20 ML SYRINGE IVPB ONE (09:19)
[2018-01-06] MEDS: Insulin LISPRO 300 UNITS/3 ML VIAL SQ SCH ×2 (09:22→11:23)
[2018-01-06] MEDS: Aspirin Enteric Coated 81 MG Tablet PO SCH (09:23)
--- NOTE | 2018-01-06 12:34 | Electrocardiograph Report ---
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
--- NOTE | 2018-01-06 14:58 | Internal Med Progress Note ---
Date of Encounter: 01/06/18 Time of Encounter: 10:20 - Assessment and plan (1) NSTEMI (non-ST elevated myocardial infarction) Current Visit: Yes Status: Acute Assessment and plan: Patient presented with chest pain, noted to have troponin leak with peak troponin at 0.41. He was also noted to have uncontrolled hypertension. Cardiology has been consulted, patient underwent left heart catheterization, which showed three-vessel disease, recommend CABG. Echocardiogram showed 50% ejection fraction, mild segmental left ventricular systolic dysfunction, mild left ventricular diastolic dysfunction. Cardiothoracic surgery evaluation completed, patient tentatively scheduled for surgery tomorrow. Continue aspirin, IV heparin drip, statin, beta pauline. (2) Hypertensive emergency Current Visit: Yes Status: Resolved Assessment and plan: Blood pressure better controlled. Continue beta pauline. May resume home dose of DIO inhibitor if blood pressure remains uncontrolled. (3) Diabetes mellitus Current Visit: Yes Status: Chronic Assessment and plan: Uncontrolled diabetes, hemoglobin A1c 10.1%. Medical noncompliance noted. Blood sugars noted to be elevated, start basal insulin, increase sliding scale insulin. Continue Accu-Chek blood glucose monitoring. Diabetic diet. Qualifiers: Diabetes mellitus type: type 2 Diabetes mellitus roasterman insulin use: without roasterman use Diabetes mellitus complication status: with hyperglycemia Qualified Code(s): E11.65 - Type 2 diabetes mellitus with hyperglycemia (4) Hyperlipidemia Current Visit: Yes Status: Chronic Assessment and plan: continue statin, check lipid profile; Qualifiers: Hyperlipidemia type: unspecified Qualified Code(s): E78.5 - Hyperlipidemia , unspecified (5) CAD (coronary artery disease) Current Visit: Yes Status: Chronic Assessment and plan: plan as above; Qualifiers: Coronary Disease-Associated Artery/Lesion type: [place] artery [place] vs. transplanted heart: [place] heart Associated angina: angina presence unspecified Qualified Code(s): I25.10 - Atherosclerotic heart disease of [place] coronary artery without angina pectoris - Subjective Interval history: Denies chest pain, shortness of breath, palpitations. Underwent left heart catheterization yesterday, recommended bypass surgery. Awaiting surgery tomorrow. - Constitutional Vitals: Temp Pulse Resp BP Pulse Ox 97.8 F 61 16 130/80 97 01/06/18 11:01 01/06/18 11:01 01/06/18 11:01 01/06/18 13:46 01/06/18 11:01 General appearance: Present: cooperative, A&O X 3, pleasant, no acute distress, answers questions appropriately - Respiratory Respiratory exam: Present: CTAB. Absent: accessory muscle use, rales, rhonchi, wheezes - Cardiovascular Cardiovascular exam: Present: RRR, +S1, +S2. Absent: diastolic murmur, gallop, rubs, systolic murmur - GI/Abdominal GI/Abdominal exam: Present: normal bowel sounds, soft, no peritoneal signs. Absent: distended, tenderness Internal Medicine: Result - Labs CBC & Chem 7: 01/05/18 06:17 01/06/18 04:03 Labs: BMP 01/06/18 04:03 Sodium 137 Potassium 4.0 Chloride 103 Carbon Dioxide 27 BUN 18 Creatinine 0.90 Glucose 203 H Calcium 8.8 Cardiac Enzymes 01/05/18 Range/Units 15:33 Troponin I 0.41 H* (< 0.04) ng/mL - ABG Interpretation ABG results: PT/INR, D-dimer PT 10.9 Seconds (9.4-12.1) 01/05/18 06:17 - Impressions Impressions Chest X-Ray 01/06/18 09:19 IMPRESSION: No acute cardiopulmonary disease. D/ : / 01/06/2018 10:32:25 Dewayne Badillo MD / [facility] Interpreting Provider: Dewayne Badillo MD - VTE Reasons for not Prescribing Prophylaxis: Not indicated-Anticoagulated or INR therapeutic Consult Discharge Plan - Plan Referrals: Mary Bland CNP [Primary Care Provider] - Louis Price CNP [Family Provider] -
[2018-01-06] MEDS ORDERED: Insulin LISPRO 300 UNITS/3 ML VIAL SQ SCH ×2 (16:30→21:00)
[2018-01-06] MEDS ORDERED: Insulin DETEMIR 100 UNIT/ML X5UNITS SQ SCH (21:00)
[2018-01-06] MEDS: Chlorhexidine Rinse 15 ML MOUTHWASH MM SCH (22:46)
[2018-01-07] MEDS: Heparin 25,000 UNIT/500 ML D5W 25,000 UNIT/500 ML BAG IVC SCH (00:11)
[2018-01-07] MEDS: Aspirin Enteric Coated 81 MG Tablet PO SCH (06:14)
[2018-01-07] MEDS: Chlorhexidine Rinse 15 ML MOUTHWASH MM SCH ×2 (06:14→20:58)
[2018-01-07] MEDS ORDERED: Famotidine 20 MG/2 ML VIAL ONE (06:42)
[2018-01-07] MEDS ORDERED: *HR* Midazolam HCl 5 MG/5 ML VIAL IVP ONE (06:42)
[2018-01-07] MEDS ORDERED: *HR* Etomidate 20 MG/10 ML AMPUL IVP ONE (06:42)
[2018-01-07] MEDS ORDERED: Protamine Sulfate 250 MG/25 ML VIAL IVP ONE (06:42)
[2018-01-07] MEDS ORDERED: *HR* Rocuronium Bromide 50 MG/5 ML VIAL ONE ×2 (06:42→11:38)
[2018-01-07] MEDS ORDERED: Tranexamic Acid 1,000 MG/10 ML VIAL ONE ×2 (06:42→09:37)
[2018-01-07] MEDS ORDERED: *HR* PHENYLEPHRINE 1,000 MCG/10 ML SYRINGE IVP ONE (06:42)
[2018-01-07] MEDS ORDERED: *HR* FentaNYL (PF) 1,000 MCG/20 ML VIAL ONE (06:43)
[2018-01-07] MEDS ORDERED: Nitroglycerin 25 MG/250 ML INFUS..BTL IVC ONE ×2 (06:45→10:23)
[2018-01-07] MEDS ORDERED: NiCARdipine 2.5 MG/10 ML Syringe IVPB ONE (06:46)
--- NOTE | 2018-01-07 07:20 | Anesthesia Evaluation PreOp ---
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 Any Significant HX Other Medical History: Diabetes Type II Anesthesia History: Past Anesthesia (denies PSH) Alcohol Use: none Drug use: none Medications and Allergies Metformin HCl [Fortamet] 500 mg PO BID 01/04/18 [History] Lisinopril-HCTZ 20-12.5 [Prinzide 20-12.5] 1 tab PO DAILY 01/05/18 [History] Omeprazole [PriLOSEC] 20 mg PO DAILY 01/05/18 [History] 3 Allergy/AdvReac Type Severity Reaction Status Date / Time No Known Allergies Allergy Verified 01/05/18 09:12 - Meds/Allergy Pre-op Review Medications Reviewed: Yes Allergies Reviewed: Yes Beta Blockers on Current Med List: Yes If Beta Blockers taken, Date/Time (Last Dose taken): today 614 Anesthesia Results - Labs 01/05/18 06:17 01/06/18 04:03 - Imaging Additional studies: echo: Impressions: LVEF 50%. Normal LV chamber size and function. Mild segmental left ventricular systolic dysfunction. Mild asymmetric hypertrophy of the basal septum. No obstruction. Mild left ventricular diastolic dysfunction. Atypical septal motion consistent with bundle branch block. Normal right ventricular structure and function. No evidence of pulmonary hypertension. No significant valvular dysfunction. cath: ardiac catheterization yesterday and was found to have severe 3 vessel CAD LVEF 45-50%. In particular the patient has a 95% proximal LAD lesion, a 70 % mid LAD lesion, a 95% mid LCx lesion, a 70% proximal RCA lesion, a 70% mid RCA lesion, and a 95% distal RCA lesion. The patient has been recommended for urgent CABG. Anesthesia Exam Selected Entries 01/07/18 03:45 Temperature 97.4 F L Pulse Rate 54 Respiratory Rate 17 Blood Pressure 128/81 O2 Sat by Pulse Oximetry 96 Oxygen Delivery Method Room Air Height: 1.85m Weight: 97kg NPO (# of Hours): 8 - HEENT Pupil (Motor): EOMI Mallampati: II Teeth: Normal Oral Opening: Greater than 3 - GAS USAGE METER CLERK LOC: Oriented GAS USAGE METER CLERK Motor: Normal RUE, Normal LUE, Normal RLE, Normal LLE, Normal Face GAS USAGE METER CLERK Sensory: Normal: RUE, LUE, RLE, LLE, Face - Cardiac Rhythm: Regular Murmur: None - Pulmonary Breath Sounds: bilateral Clear Respiratory Effort: Symmetrical Anesthesia Assess/Plan ASA Score: 4 Modified [place] Scale for Level of Consciousness: Cooperative, oriented, and tranquil Anesthetic Plan: General Monitoring Plan: Standard Monitors, A-Line, PAC, ANIKA Recovery Plan: ICU (agrees to GA, lines, ANIKA and blood products)
[2018-01-07] MEDS ORDERED: Norepinephrine 4 MG in D5% in Water 250 ML IVC PRN (07:30)
[2018-01-07] MEDS ORDERED: Dextrose 50 % in Water (Vial) 30 ML, Sodium Bicarbonate 20 MEQ, Potassium Chloride 15 M... TH ONE (07:30)
[2018-01-07] MEDS ORDERED: Insulin Human Regular 100 UNIT in 0.9 % Sodium Chloride 100 ML IV PRN (07:30)
[2018-01-07] MEDS ORDERED: CeFAZolin Syr 2,000MG/20 ML 2,000 MG/20 ML SYRINGE IVPB ONE (07:44)
[2018-01-07] MEDS ORDERED: Lidocaine 2% Syringe 100 MG/5 ML IV ONE (08:58)
[2018-01-07] MEDS ORDERED: *HR* Heparin 10,000 UNIT/10 ML VIAL IV ONE (08:58)
[2018-01-07] MEDS ORDERED: *HR* Phenylephrine 10 MG/ML VIAL IVC ONE (08:58)
[2018-01-07] MEDS ORDERED: *HR* Magnesium Sulfate 2 GM/50 ML PIGGYBACK IVPB ONE (08:58)
[2018-01-07] MEDS ORDERED: Mannitol 25% vial 12.5 GM/50 ML VIAL IVP ONE (08:58)
[2018-01-07] MEDS ORDERED: Albumin Human 25% 25 GM/100 ML IV.SOLN IV ONE (08:58)
[2018-01-07 09:06] LABS: ABG Base Excess 2 mEq/L (-2 to 3); ABG Chloride 106 mEq/L (98-107); ABG Glucose 248 mg/dL (60-95); ABG HCO3 29 mEq/L (21-27); ABG Ionized Calcium 1.13 mmol/L (1.15-1.35); ABG Oxygen Saturation 100 % (95-98); ABG PCO2 53 mmHg (35-45); ABG PH 7.34 pH Units (7.32-7.45); ABG PO2 505 mmHg (85-104); ABG TCO2 30 mEq/L (20-26)
[2018-01-07 10:20] LABS: ABG Base Excess -4 mEq/L (-2 to 3); ABG Chloride 109 mEq/L (98-107); ABG Glucose 258 mg/dL (60-95); ABG HCO3 23 mEq/L (21-27); ABG Ionized Calcium 0.88 mmol/L (1.15-1.35); ABG Oxygen Saturation 97 % (95-98); ABG PCO2 48 mmHg (35-45); ABG PH 7.29 pH Units (7.32-7.45); ABG PO2 107 mmHg (85-104); ABG TCO2 25 mEq/L (20-26)
[2018-01-07] MEDS ORDERED: Albumin Human 5% 50.0 GM/1,000 ML VIAL ONE (10:22)
--- NOTE | 2018-01-07 10:29 | Anesthesia Procedures ---
Date of Encounter: 01/07/18 Time of Encounter: 08:10 Procedures: Anesthesia - Arterial Line Consent obtained: written consent Time out performed: Yes Sedation: Versed (mg): 2 Sedation: Fentanyl (mcg): 100 Supplemental Oxygen via Nasal Cannula (L/min): 2 Local Anesthetic: Lidocaine 1% Amount of Anesthetic used (mls): 1 Size (Gauge): 20 Length (inches): 5 Technique Used: sterile prep, guide wire technique, direct puncture technique Post-Procedure: line taped into place, dry sterile dressing placed Patient tolerated procedure: well, no complications Complications: none Site: Radial L (attempt x 1) - Central Line Placement Right IJ Consent obtained: written consent Time out performed: Yes Patient placed on monitor/pulse ox: Yes prep: mask, gown, gloves Central line prep: Chlorhexidine scrub Ultrasound used for placement: Yes Technique: Seldinger Lumen Inserted: Introducer Post procedure: sutured in place, good blood return, all ports aspirated, flushed, capped, sterile dressing applied Patient tolerated procedure: well, no complications Complications: none (attempt x 1, easy placement of introducer. Bartley placed easily without arrythmias, wedge approx 52cm)
[2018-01-07 10:46] LABS: ABG Base Excess 0 mEq/L (-2 to 3); ABG Chloride 99 mEq/L (98-107); ABG Glucose 317 mg/dL (60-95); ABG HCO3 25 mEq/L (21-27); ABG Ionized Calcium 0.94 mmol/L (1.15-1.35); ABG Oxygen Saturation 100 % (95-98); ABG PCO2 46 mmHg (35-45); ABG PH 7.35 pH Units (7.32-7.45); ABG PO2 492 mmHg (85-104); ABG TCO2 27 mEq/L (20-26)
[2018-01-07 11:16] LABS: ABG Base Excess -1 mEq/L (-2 to 3); ABG Chloride 101 mEq/L (98-107); ABG Glucose 305 mg/dL (60-95); ABG HCO3 26 mEq/L (21-27); ABG Ionized Calcium 1.02 mmol/L (1.15-1.35); ABG Oxygen Saturation 100 % (95-98); ABG PCO2 51 mmHg (35-45); ABG PH 7.32 pH Units (7.32-7.45); ABG PO2 426 mmHg (85-104); ABG TCO2 28 mEq/L (20-26)
[2018-01-07 11:45] LABS: ABG Base Excess 2 mEq/L (-2 to 3); ABG Chloride 102 mEq/L (98-107); ABG Glucose 273 mg/dL (60-95); ABG HCO3 26 mEq/L (21-27); ABG Ionized Calcium 1.01 mmol/L (1.15-1.35); ABG Oxygen Saturation 100 % (95-98); ABG PCO2 37 mmHg (35-45); ABG PH 7.45 pH Units (7.32-7.45); ABG PO2 430 mmHg (85-104); ABG TCO2 27 mEq/L (20-26)
[2018-01-07] MEDS ORDERED: Protamine Sulfate 50 MG/5 ML VIAL IVP ONE (12:15)
[2018-01-07 12:17] LABS: ABG Base Excess 2 mEq/L (-2 to 3); ABG Chloride 102 mEq/L (98-107); ABG Glucose 225 mg/dL (60-95); ABG HCO3 26 mEq/L (21-27); ABG Oxygen Saturation 100 % (95-98); ABG PCO2 37 mmHg (35-45); ABG PH 7.45 pH Units (7.32-7.45); ABG PO2 380 mmHg (85-104); ABG TCO2 27 mEq/L (20-26)
[2018-01-07 12:49] LABS: ABG Base Excess -2 mEq/L (-2 to 3); ABG Chloride 106 mEq/L (98-107); ABG Glucose 200 mg/dL (60-95); ABG HCO3 24 mEq/L (21-27); ABG Ionized Calcium 1.17 mmol/L (1.15-1.35); ABG Oxygen Saturation 96 % (95-98); ABG PCO2 41 mmHg (35-45); ABG PH 7.37 pH Units (7.32-7.45); ABG PO2 86 mmHg (85-104); ABG TCO2 25 mEq/L (20-26)
--- NOTE | 2018-01-07 13:09 | Operative Note ---
Date of procedure: 01/07/18 Pre-op diagnosis: NSTEMI Post-op diagnosis: same Procedure: 1. CABG 5 (BECKWITH to LAD, SVG to D1, sequential SVG to OM to then OM3, SVG to PDA). 2. Endoscopic vein harvesting, greater saphenous vein from right lower extremity. 3. Endoscopic vein harvesting, greater saphenous vein from left lower extremity. Implants: None. Complications: None. Anesthesia: GETA Surgeon: Simona Jj Was there an general assistant present: Yes Dual Rate Dealer: Peyman Lugo Estimated blood loss (cc): 500 Specimen: None. Condition: stable Disposition: ICU Procedure in Detail: INDICATIONS FOR OPERATION: The patient is a 47 year old type II diabetic, hypertensive man with hypercholesterolemia who was transferred to [facility] from [facility] with the diagnosis of an acute NSTEMI. The patient is very active; however, began experiencing exertional substernal chest pain and shortness of breath several months ago. Initially, he had a severe episode of substernal chest pain while carrying boxes up stairs while moving in January 2017. The patient had associated shortness of breath and diaphoresis, but recovered fairly rapidly from the episode. He states that he walks several miles each day, it in August 2017 began experiencing exertional substernal chest pain and shortness of breath, particularly with running. The symptoms became more frequent and severe. In November 2017 the patient was evaluated at [facility] and was recommended for cardiac workup. He declined at that time. 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 On December , the patient had severe substernal chest pain radiating to his left arm and shortness of breath while shopping. He rested in his car for several minutes until the symptoms resolved and then was evaluated at [facility]. He was found to have elevated troponin I levels consistent with an acute NSTEMI. He was treated medically and transferred to the original Medical [facility] for further cardiac care. The patient underwent a transthoracic echocardiogram which revealed an LVEF 50% with normal left ventricular size and function. No valvular dysfunction was noted. He underwent cardiac catheterization yesterday and was found to have severe 3 vessel CAD LVEF 45-50%. In particular the patient has a 95% proximal LAD lesion, a 70% mid LAD lesion, a 95% mid LCx lesion, a 70% proximal RCA lesion, a 70% mid RCA lesion, and a 95% distal RCA lesion. The patient has been recommended for urgent CABG. FINDINGS AT OPERATION: The aorta was of normal caliber without calcification. The coronary arteries measure approximately 1.5-2 mm in diameter and were thickened with multiple distal lesions. The greater saphenous vein was harvested endoscopically from both the left and right lower extremities from the knee to the groin and was of fair quality, being varicosed and some areas and smaller in diameter than expected and others. The total bypass time was 115 minutes, cross-clamp time 67 minutes, intentional hypothermia of 33 degrees centigrade. DESCRIPTION OF OPERATION: After obtaining informed consent from the patient, he was taken to the operative tumor satisfactory general tracheal anesthetic was induced. Appropriate monitor notch placed, the patient's chest, abdomen, and lower extremity were prepped and draped in a sterile fashion. The greater saphenous vein was initially harvested from the right lower extremity from the knee to the groin. Below the knee the greater saphenous vein was small and not usable for bypass conduit. The vein was removed, distended, and found to be of fair quality. The greater saphenous vein from the right lower extremity was varicosed in some areas and smaller in diameter than expected and other areas. Only 2 usable segments of greater saphenous vein could be harvested from the lower extremity, and the greater saphenous vein from the left lower extremity was harvested from the knee to the groin. The left greater saphenous vein was also of fair quality, being varicosed in some areas and smaller in diameter than expected and other areas. Both greater saphenous veins required valvulotomy so that the larger diameter could be placed proximally and the smaller diameter distally. The simultaneous tissue and skin edges were reapproximated a running Vicryl suture. Simultaneously, a standard median sternotomy incision was made and the sternum divided. The BECKWITH was taken down from its bed and side branches divided between hemoclips. The sternum was and the pericardium opened and reflected laterally. The patient was prepared for cannulation by placing pursestring sutures in the distal ascending aorta, mid-ascending aorta, and right atrial appendage. The patient was heparinized when he is to return in 200 seconds, the distal ascending aorta was cannulated followed by placement of a dual stage venous cannula through the right atrial appendage and into the inferior vena cava. A stab-in antegrade metabolic cannula was placed in the mid -ascending aorta. The patient was placed on bypass and the temperature was allowed to drift to 33 degrees Centigrade. The distal targets were identified and the aorta was crossclamped. The patient received 200 mL of cold antegrade Crisler cartilage up to the aortic root and the patient's heart and rapid diastolic arrest. The PDA was opened the [employer] blade and the vein was anastomosed in an inside fashion using running 7-0 Prolene suture. The anastomosis found be hemostatic. This process was then repeated for the ON 3 branch. After completion of this anastomosis patient received a notice of cold antegrade Crisler cartilage inferior group. The OM 2 branch was opened with a [employer] blade and the vein was opened in a longitudinal fashion so the [id number] anastomosis could be completed with a running 7-0 Prolene suture. The anastomosis found to be hemostatic. The D1 branch was opened with a blade and the vein was anastomosed in an end-to-side fashion using running 7-0 Prolene suture. The anastomosis found to be hemostatic and the patient received a final dose of cold antegrade crystalloid cardioplegia through the aortic root. Finally the LAD was opened the [employer] blade and the BECKWITH was anastomosed in end-to-side fashion to the LAD using running 7-0 Prolene suture. The anastomosis found to be hemostatic and the mammary pedicle was tacked to the epicardium using interrupted 5-0 silk suture. Rewarming was begun during this anastomosis. Aortic cross-clamp was released and the heart distended. The veins were measured and cut at appropriate lengths. A partial occluding clamps placed across the midascending aorta and the antegrade cardioplegia cannula was removed. Two additional aortotomy sites were made 11 blade, and all 3 sites were enlarged with 4 mm punch. The veins were anastomosed in end-to-side fashion to the aorta using a running 5-0 Prolene suture. The vein grafts were occluded with bulldog clamps and de-aired the 25-gauge needle prior to removing the partial occluding clamp. The proximal distal anastomosis found to be hemostatic and the proximal anastomoses were marked with radiopaque loops. When the patient's systemic temperature reached 36 degrees antegrade he was ventilated to receive volume. He was then weaned from bypass required no inotropic support. Protamine was administered and the aortic and venous cannulae were removed. The pursestring sutures were secured and the venous cannulation site was reinforced with a running 4-0 Prolene suture. The pericardium was loosely approximated in midline using interrupted 0 silk suture and the sternum was reapproximated sternal wires. The pectoralis major fascia, rectus pelvis fascia , subcutaneous tissue, and skin edges were reapproximated running Vicryl sutures. A negative pressure sterile dressing was applied to the sternotomy incision. The patient was transferred to the ICU in satisfactory postoperative condition. There were no intraoperative complications, and instrument, needle, and sponge count were correct at operation. - Open Heart Detail LALY (Internal Mammary Artery) Usage: Yes Cardiopulmonary Bypass Time (mins): 115 Aortic Cross Clamp Time (mins): 67 Intentional Hypothermia Temperature (C.): 33
[2018-01-07] MEDS ORDERED: Calcium Chloride 1,000 MG in 0.9 % Sodium Chloride 100 ML IVPB PRN (13:22)
[2018-01-07] MEDS ORDERED: Ondansetron 4 MG/2 ML VIAL IVP PRN (13:22)
[2018-01-07] MEDS ORDERED: Potassium Chloride 40 MEQ/200 ML BAG IVPB PRN (13:22)
[2018-01-07] MEDS ORDERED: *HR* Dextrose 50 % in Water (Syg) 50 ML SYRINGE IVP PRN (13:22)
[2018-01-07] MEDS ORDERED: Acetaminophen 325 MG TABLET PO PRN (13:22)
[2018-01-07] MEDS ORDERED: Acetaminophen 650 MG RECTAL SUPP RC PRN (13:22)
[2018-01-07] MEDS ORDERED: Insulin Regular, Human 100 UNIT/ML IV PRN (13:22)
[2018-01-07] MEDS ORDERED: 0.9 % Sodium Chloride w KCl 20 MEQ/1,000 ML MLS IVC SCH (13:30)
[2018-01-07] MEDS ORDERED: Insulin Human Regular 100 UNIT in 0.9 % Sodium Chloride 100 ML IVC SCH (13:30)
[2018-01-07 14:04] LABS: Basophils # 0.1 K/mcL (0.0-0.2); Basophils % 0.4 %; Eosinophils % 2.2 %; Hematocrit 35.6 % (37.5-50.1); Hemoglobin 12.6 g/dL (12.9-16.9); Immature Granulocytes % 1.4 % (0-4); Lymphocytes # 3.6 K/mcL (0.6-4.6); Lymphocytes % 14.8 %; Mean Corpuscular HGB Conc 35.4 g/dL (31.6-35.5); Mean Corpuscular Hemoglobin 27.9 pg (28.0-33.3); Mean Corpuscular Volume 78.9 fL (83.0-100.0); Mean Platelet Volume 10.9 fL (9.4-12.4); Monocytes # 1.6 K/mcL (0.0-1.3); Monocytes % 6.5 %; Neutrophils # 18.3 K/mcL (1.6-8.9); Platelet Count 240 K/mcL (140-400); Red Blood Count 4.51 M/mcL (4.19-5.50); Red Cell Distribution Width 12.7 % (11.5-14.5); Segmented Neutrophils % 74.7 %
[2018-01-07 14:08] LABS: INR 1.4; Prothrombin Time 15.2 Seconds (9.4-12.1)
[2018-01-07 14:10] LABS: Eosinophils # 0.5 K/mcL (0.0-0.6)
[2018-01-07] MEDS: *HR* FentaNYL (PF) 100 MCG/2 ML VIAL IVP PRN ×2 (14:10→23:56)
[2018-01-07 14:12] LABS: Activated Partial Thrombo Time 29.6 Seconds (26.0-36.0)
[2018-01-07 14:16] LABS: ABG Base Excess 0 mEq/L (-2 to 3); ABG HCO3 26 mEq/L (21-27); ABG Oxygen Saturation 100 % (95-98); ABG PCO2 47 mmHg (35-45); ABG PH 7.35 pH Units (7.32-7.45); ABG PO2 303 mmHg (85-104); ABG TCO2 27 mEq/L (20-26)
[2018-01-07 14:21] LABS: BUN/Creatinine Ratio 19 (6-26); Blood Urea Nitrogen 15 mg/dL (6-20); Calcium 8.1 mg/dL (8.6-10.3); Carbon Dioxide 26 mEq/L (23-29); Chloride 108 mEq/L (98-107); Glucose 183 mg/dL (70-105); Magnesium 2.1 mg/dL (1.6-2.6); Osmolality,Calculated 290 (280-300); Potassium 3.8 mEq/L (3.5-5.1); Sodium 137 mEq/L (136-145); eGFR For African Americans > 60 (> 60); eGFR For Non-African Americans > 60 (> 60)
[2018-01-07] MEDS: Norepinephrine 4 MG in D5% in Water 250 ML IVC SCH (14:25)
[2018-01-07] MEDS: Pantoprazole 40 MG VIAL IVP SCH (14:35)
[2018-01-07] MEDS: *HR* OxyCODONE/APAP 5/325 TABLET PO PRN ×2 (15:15→20:59)
[2018-01-07] MEDS: Ketorolac 15 MG/ML VIAL IVP SCH ×2 (17:13→23:08)
[2018-01-07] MEDS: CeFAZolin Premix DUPLEX 2,000 MG/50 ML BAG IVPB SCH ×2 (17:13→23:08)
[2018-01-07] MEDS: Metoclopramide 10 MG/2 ML VIAL IVP SCH ×2 (17:13→23:08)
[2018-01-07] MEDS ORDERED: 0.9 % Sodium Chloride 250 ML ONE (17:24)
[2018-01-07 19:01] LABS: ABG Base Excess 0 mEq/L (-2 to 3); ABG HCO3 25 mEq/L (21-27); ABG Oxygen Saturation 98 % (95-98); ABG PCO2 40 mmHg (35-45); ABG PO2 100 mmHg (85-104); ABG TCO2 26 mEq/L (20-26)
[2018-01-07] MEDS: Nitroglycerin 25 MG/250 ML INFUS..BTL IVC SCH ×2 (19:22→23:04)
[2018-01-07] MEDS: niCARdipine 40 MG/200 ML MLS IVC SCH ×2 (19:22→20:59)
[2018-01-08] MEDS ORDERED: Dextrose 50 % in Water (Vial) 30 ML, Sodium Bicarbonate 20 MEQ, Lidocaine 1% 5 ML, Insu... TH SCH (02:00)
[2018-01-08] MEDS ORDERED: Heparin 15,000 UNIT in 0.9 % Sodium Chloride 500 ML IV SCH (02:00)
[2018-01-08] MEDS: *HR* OxyCODONE/APAP 5/325 TABLET PO PRN ×4 (02:28→20:52)
[2018-01-08] MEDS: *HR* FentaNYL (PF) 100 MCG/2 ML VIAL IVP PRN ×2 (02:28→05:20)
[2018-01-08 03:56] LABS: Basophils # 0.1 K/mcL (0.0-0.2); Basophils % 0.3 %; Eosinophils % 0.1 %; Hematocrit 28.3 % (37.5-50.1); Immature Granulocytes % 0.8 % (0-4); Lymphocytes # 1.3 K/mcL (0.6-4.6); Lymphocytes % 8.7 %; Mean Corpuscular HGB Conc 33.9 g/dL (31.6-35.5); Mean Corpuscular Hemoglobin 27.5 pg (28.0-33.3); Mean Corpuscular Volume 81.1 fL (83.0-100.0); Monocytes # 1.5 K/mcL (0.0-1.3); Monocytes % 10.6 %; Neutrophils # 11.5 K/mcL (1.6-8.9); Platelet Count 200 K/mcL (140-400); Red Blood Count 3.49 M/mcL (4.19-5.50); Red Cell Distribution Width 13.2 % (11.5-14.5); Segmented Neutrophils % 79.5 %
[2018-01-08 04:01] LABS: Hemoglobin 9.6 g/dL (12.9-16.9)
[2018-01-08 04:02] LABS: INR 1.3; Prothrombin Time 14.6 Seconds (9.4-12.1)
[2018-01-08] MEDS: Norepinephrine 4 MG in D5% in Water 250 ML IVC SCH (04:04)
[2018-01-08 04:05] LABS: Activated Partial Thrombo Time 30.4 Seconds (26.0-36.0)
[2018-01-08 04:23] LABS: BUN/Creatinine Ratio 17 (6-26); Blood Urea Nitrogen 19 mg/dL (6-20); Carbon Dioxide 24 mEq/L (23-29); Chloride 106 mEq/L (98-107); Glucose 157 mg/dL (70-105); Magnesium 2.1 mg/dL (1.6-2.6); Osmolality,Calculated 288 (280-300); Potassium 3.9 mEq/L (3.5-5.1); Sodium 136 mEq/L (136-145); eGFR For African Americans > 60 (> 60); eGFR For Non-African Americans > 60 (> 60)
[2018-01-08] MEDS: Ketorolac 15 MG/ML VIAL IVP SCH ×3 (05:27→17:19)
[2018-01-08] MEDS: Metoclopramide 10 MG/2 ML VIAL IVP SCH ×3 (05:27→17:21)
[2018-01-08] MEDS: niCARdipine 40 MG/200 ML MLS IVC SCH (05:28)
[2018-01-08] MEDS: Nitroglycerin 25 MG/250 ML INFUS..BTL IVC SCH (05:29)
[2018-01-08] MEDS: Heparin 25,000 UNIT/500 ML D5W 25,000 UNIT/500 ML BAG IVC SCH (05:29)
--- NOTE | 2018-01-08 07:11 | Cardiothoracic Progress Note ---
Date of Encounter: 01/08/18 Time of Encounter: 07:09 - Assessment and plan (1) CAD (coronary artery disease) Current Visit: Yes Status: Chronic The patient remained hemodynamically stable overnight. He is currently extubated and breathing comfortably. The arterial line, Canseco catheter, and [place]-Jorge catheter will be removed. He will be transferred to the stepdown unit when a bed is available. The assessment and plan as outlined above was discussed with the patient and/or family members who expressed understanding and agreement. All questions were answered. Qualifiers: Coronary Disease-Associated Artery/Lesion type: [place] artery [place] vs. transplanted heart: [place] heart Associated angina: angina presence unspecified Qualified Code(s): I25.10 - Atherosclerotic heart disease of [place] coronary artery without angina pectoris - Subjective Procedure(s) Performed: POD#1 S/P CABG5 Interval history: The patient remained hemodynamic stable overnight. He is currently extubated and breathing comfortably. He has no complaints. Vital Signs, Last 4 Hours Temp Pulse Resp BP Pulse Ox 01/08/18 06:00 98.9 F 85 14 140/73 96 01/08/18 05:00 98.9 F 83 16 111/65 95 01/08/18 04:00 99.2 F 75 16 105/52 98 01/08/18 03:33 16 100 Oxgyen Flow Rate Oxygen Flow Rate (LPM) 2 Clinical Data, last 8 Hours Output, Chest Tube Drainage 10 Amount [Mediastinal #1] Output, Chest Tube Drainage 0 Amount [Mediastinal #1] Output, Chest Tube Drainage 10 Amount [Mediastinal #2] Output, Chest Tube Drainage 30 Amount [Mediastinal #2] Output, Chest Tube Drainage 20 Amount [Mediastinal #2] Output, Chest Tube Drainage 0 Amount [Mediastinal #2] Output, Chest Tube Drainage 0 Amount [Mediastinal #2] Output, Chest Tube Drainage 20 Amount [Mediastinal #2] Output, Chest Tube Drainage 0 Amount [Mediastinal #2] Output, Chest Tube Drainage 20 Amount [Mediastinal #2] Output, Chest Tube Drainage 5 Amount [Mediastinal #3] Output, Chest Tube Drainage 10 Amount [Mediastinal #3] Output, Chest Tube Drainage 10 Amount [Mediastinal #3] Weight 01/06/18 01/07/18 01/08/18 22:59 23:59 23:59 Weight - Physical Examination General: Conversant, No Apparent Distress Neck: No JVD, Normal carotid pulses Cardiac: Reg Rate and Rhythm, Normal S1 and S2, No Murmur Incision: No signs of infection, Dry/intact dressing Sternum: Stable Chest tubes: Minimal drainage, Other (No air leak) Pacing Wires: In place Lungs: Normal Breath Sounds, No Wheeze, Rales, Rhonchi Neuro: Alert and responsive, No focal deficits noted Vascular: Normal capillary refill Extremities: No Clubbing, No Cyanosis, No Edema, Normal Pulses - Labs 01/08/18 03:40 01/08/18 03:40 Lab Results, Last 24 hours 01/07/18 01/07/18 01/07/18 13:50 13:50 13:50 WBC 24.5 H D Hgb 12.6 L Hct 35.6 L Plt Count 240 INR 1.4 APTT 29.6 D Sodium 137 Potassium 3.8 Chloride 108 H Carbon Dioxide 26 BUN 15 Creatinine 0.79 Glucose 183 H Calcium 8.1 L Magnesium 2.1 01/08/18 01/08/18 01/08/18 03:40 03:40 03:40 WBC 14.5 H Hgb 9.6 L D Hct 28.3 L Plt Count 200 INR 1.3 APTT 30.4 Sodium 136 Potassium 3.9 Chloride 106 Carbon Dioxide 24 BUN 19 Creatinine 1.10 Glucose 157 H Calcium 8.0 L Magnesium 2.1 - Imaging Chest Xray: image reviewed (No pneumothorax. Low lung volumes with bibasilar atelectasis.) - VTE Reasons for not Prescribing Prophylaxis: Not indicated-Anticoagulated or INR therapeutic Documentation of Mechanical Device: Graduated compression elastic hosiery Consult Discharge Plan - Plan Referrals: Mary Bland CNP [Primary Care Provider] - Louis Price CNP [Family Provider] -
[2018-01-08] MEDS: Chlorhexidine Rinse 15 ML MOUTHWASH MM SCH ×2 (08:05→20:54)
[2018-01-08] MEDS: Pantoprazole 40 MG VIAL IVP SCH (08:05)
[2018-01-08] MEDS ORDERED: Furosemide 20 MG/2 ML VIAL IVP SCH (09:00)
[2018-01-08] MEDS ORDERED: Aspirin Enteric Coated 81 MG Tablet PO SCH (09:00)
[2018-01-08] MEDS ORDERED: Acetaminophen 325 MG TABLET PO PRN (09:27)
[2018-01-08] MEDS ORDERED: Insulin Regular, Human 100 UNIT/ML IV PRN (09:27)
[2018-01-08] MEDS ORDERED: *HR* FentaNYL (PF) 100 MCG/2 ML VIAL IVP PRN (09:27)
[2018-01-08] MEDS ORDERED: Naloxone 0.4 MG/ML INJ IVP PRN (09:27)
[2018-01-08] MEDS ORDERED: *HR* Metformin 500 MG TABLET PO SCH (09:27)
[2018-01-08] MEDS ORDERED: Insulin Human Regular 100 UNIT in 0.9 % Sodium Chloride 100 ML IVC SCH (09:27)
[2018-01-08] MEDS ORDERED: *HR* Dextrose 50 % in Water (Syg) 50 ML SYRINGE IVP PRN (09:27)
[2018-01-08] MEDS ORDERED: Dextrose Gel 15 GM/37.5 ML TUBE PO PRN ×2 (09:27)
[2018-01-08] MEDS ORDERED: Ondansetron 4 MG/2 ML VIAL IVP PRN (09:27)
[2018-01-08] MEDS: *HR* Heparin 5,000 UNIT/ML VIAL SQ SCH ×2 (11:08→17:23)
[2018-01-08] MEDS: Lisinopril-HCTZ 20-12.5mg TABLET PO SCH (11:08)
[2018-01-08] MEDS: Insulin LISPRO 300 UNITS/3 ML VIAL SQ SCH ×7 (11:09→20:54)
--- NOTE | 2018-01-08 14:18 | Anesthesia Evaluation Post Op ---
Date of Encounter: 01/08/18 Time of Encounter: 14:16 - Vital Signs Vital Signs: Selected Entries 01/08/18 11:14 01/08/18 11:30 Temperature 98.1 F Pulse Rate 88 Respiratory Rate 16 Blood Pressure 94/50 O2 Sat by Pulse Oximetry 98 Oxygen Flow Rate (LPM) 2 Oxygen Delivery Method Nasal Cannula - Lungs Lungs: Clear Ascult./Percussion - Airway Airway: Non-obstructed - Cardiovascular Regular Rate - Mental Status Mental Status: Alert & Oriented, Answers Appropriately - Pain Pain Scale: 3 Pain Scale used: Numeric (1 - 10) - Nausea Vomiting Nausea Vomiting: Not Present - Hydration Hydration: Tolerates oral liquids, Able to void - Discharge PostOp Status: Transfer Patient to floor (per Dr. Gonsalez orders. Patinet without apparent anesthesia complications POD#1 CABG)
--- NOTE | 2018-01-08 14:37 | Internal Med Progress Note ---
<Desmond Yun - Last Filed: 01/08/18 14:34> Date of Encounter: 01/08/18 Time of Encounter: 13:45 - Assessment and plan (1) NSTEMI (non-ST elevated myocardial infarction) Current Visit: Yes Status: Acute Assessment and plan: Patient presented with chest pain Nnoted to have elevated troponins He was also noted to have uncontrolled hypertension Cardiology has been consulted, patient underwent left heart catheterization, which showed three-vessel disease, with a recommendation for CABG Echocardiogram showed 50% ejection fraction, mild segmental left ventricular systolic dysfunction, mild left ventricular diastolic dysfunction. Cardiothoracic surgery evaluated patient and he underwent CABGx5 on 01/07/18 Continued management per Cardiothoracic surgery (2) Diabetes mellitus Current Visit: Yes Status: Chronic Assessment and plan: Uncontrolled diabetes Hemoglobin A1c 10.1% Medical noncompliance noted Blood sugars noted to be elevated Patient currently NPO Recommend starting basal insulin at 10 units of levemir daily once patient taking PO Continue sliding scale insulin at ACHS when patient taking PO, will start Q6 hour Blood Glucose checks and SSI until then Qualifiers: Diabetes mellitus type: type 2 Diabetes mellitus fci insulin use: without fci use Diabetes mellitus complication status: with hyperglycemia Qualified Code(s): E11.65 - Type 2 diabetes mellitus with hyperglycemia (3) Noncompliance w/medication treatment due to intermit use of medication Current Visit: Yes Status: Chronic Assessment and plan: Patient found to have A1c of 10.1, previously on metformin and was admittedly taking it sporadically The importance of medication compliance was stressed patient (4) Hyperlipidemia Current Visit: Yes Status: Chronic Assessment and plan: Continue statin Will check lipid profile Recommend continuation of statin given coronary artery disease and uncontrolled diabetes Qualifiers: Hyperlipidemia type: unspecified Qualified Code(s): E78.5 - Hyperlipidemia , unspecified - Subjective Interval history: This is a internal medicine progress-consult note. Internal medicine has been asked to assist with Diabetes management in this patient. Patient is resting comfortably in bed, appears fatigued. He reports having fatigue and soreness in his chest at site of sternotomy yesterday. He denies having any shortness of breath, cough, fever, nausea/vomiting, weakness ( general or asymmetric), or numbness and tingling. He does report having one episode diaphoresis and around noon. - Constitutional Vitals: Temp Pulse Resp BP Pulse Ox 98.1 F 88 16 94/50 98 01/08/18 11:30 01/08/18 11:14 01/08/18 11:35 01/08/18 11:14 01/08/18 11:35 General appearance: Present: cooperative, A&O X 3, pleasant, no acute distress, answers questions appropriately Exam: General: Cooperative, pleasant, no acute distress, alert and oriented 3, answers questions appropriately HEENT: Normocephalic, atraumatic, neck supple, trachea midline, Conjunctiva pink , sclera anicteric, oral mucosa moist, no orophargeal erythema or exudates Respiratory: No accessory muscle usage, clear to auscultation bilaterally, no wheezes/rhonchi/rails present CV/Chest: Regular rate and rhythm, S1 and S2 present, bandage in place over his sternotomy incision, several chest tubes present GI/abdominal: Nondistended, nontender, soft, normal bowel sounds, no peritoneal signs Extremities: No calf tenderness, no pedal edema appreciated, warm, lower extremity pulses palpable and symmetrical Neurological: Alert and oriented 3, no facial droop, no focal deficits Skin: Dry, intact, normal color Internal Medicine: Result - Labs CBC & Chem 7: 01/08/18 03:40 01/08/18 03:40 Labs: Short CBC 01/08/18 Range/Units 03:40 WBC 14.5 H (4.3-11.1) K/mcL Hgb 9.6 L D (12.9-16.9) g/dL Hct 28.3 L (37.5-50.1) % Plt Count 200 (140-400) K/mcL Neutrophils # 11.5 H (1.6-8.9) K/mcL BMP 01/08/18 03:40 Sodium 136 Potassium 3.9 Chloride 106 Carbon Dioxide 24 BUN 19 Creatinine 1.10 Glucose 157 H Calcium 8.0 L - ABG Interpretation ABG results: ABG ABG pH 7.40 pH Units (7.32-7.45) 01/07/18 18:57 ABG pCO2 40 mmHg (35-45) 01/07/18 18:57 ABG pO2 100 mmHg (85-104) D 01/07/18 18:57 ABG O2 Saturation 98 % (95-98) 01/07/18 18:57 PT/INR, D-dimer PT 14.6 Seconds (9.4-12.1) H 01/08/18 03:40 - Impressions Impressions Chest X-Ray 01/08/18 04:00 IMPRESSION: 1. Interval removal of endotracheal and enteric tubes. [place]-Jorge catheter tip appears slightly advanced with the tip projecting over the right lower lobe pulmonary artery. 2. Right basilar atelectasis. Left basilar atelectasis appears slightly improved. D/ / 01/08/2018 08:56:39 Claire Farias MD / [facility] Interpreting Provider: Claire Farias MD - VTE Reasons for not Prescribing Prophylaxis: Not indicated-Anticoagulated or INR therapeutic Documentation of Mechanical Device: Graduated compression elastic hosiery Consult Discharge Plan - Plan Referrals: Mary Bland CNP [Primary Care Provider] - Louis Price CNP [Family Provider] - <Willian Perez H - Last Filed: 01/08/18 15:46> Date of Encounter: 01/08/18 - Constitutional Vitals: Temp Pulse Resp BP Pulse Ox 98.1 F 88 16 94/50 98 01/08/18 11:30 01/08/18 11:14 01/08/18 11:35 01/08/18 11:14 01/08/18 11:35 Internal Medicine: Result - Labs CBC & Chem 7: 01/08/18 03:40 01/08/18 03:40 Labs: Short CBC 01/08/18 Range/Units 03:40 WBC 14.5 H (4.3-11.1) K/mcL Hgb 9.6 L D (12.9-16.9) g/dL Hct 28.3 L (37.5-50.1) % Plt Count 200 (140-400) K/mcL Neutrophils # 11.5 H (1.6-8.9) K/mcL BMP 01/08/18 03:40 Sodium 136 Potassium 3.9 Chloride 106 Carbon Dioxide 24 BUN 19 Creatinine 1.10 Glucose 157 H Calcium 8.0 L - ABG Interpretation ABG results: ABG ABG pH 7.40 pH Units (7.32-7.45) 01/07/18 18:57 ABG pCO2 40 mmHg (35-45) 01/07/18 18:57 ABG pO2 100 mmHg (85-104) D 01/07/18 18:57 ABG O2 Saturation 98 % (95-98) 01/07/18 18:57 PT/INR, D-dimer PT 14.6 Seconds (9.4-12.1) H 01/08/18 03:40 - Impressions Impressions Chest X-Ray 01/08/18 04:00 IMPRESSION: 1. Interval removal of endotracheal and enteric tubes. [place]-Jorge catheter tip appears slightly advanced with the tip projecting over the right lower lobe pulmonary artery. 2. Right basilar atelectasis. Left basilar atelectasis appears slightly improved. D/ / 01/08/2018 08:56:39 [facility] Inter[facility] Provider: Claire Farias MD - Attending Attestation Consulted for diabetes management The patient's hemoglobin A1c is 10.1 Start Levemir at night if the patient starts eating May add Humalog 3 units 3 times a day plus insulin sliding scale May restart metformin 500 mg twice a day as an outpatient and follow-up with primary care physician to increase dose. We will defer further management to the primary team/Dr. Jj I examined this patient and my medical decision-making was reviewed with the Resident Physician. I agree with the documented findings, disposition and treatment plan as described except to the extent set forth below.
[2018-01-08] MEDS: Furosemide 20 MG/2 ML VIAL IVP SCH (17:20)
[2018-01-08] MEDS: *HR* Metformin 500 MG TABLET PO SCH (17:21)
[2018-01-08] MEDS: Insulin DETEMIR 100 UNIT/ML X5UNITS SQ SCH (17:33)
--- NOTE | 2018-01-08 20:09 | Electrocardiograph Report ---
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
[2018-01-08] MEDS ORDERED: Insulin DETEMIR 100 UNIT/ML X5UNITS SQ SCH (21:00)
[2018-01-09] MEDS: Ketorolac 15 MG/ML VIAL IVP SCH ×5 (00:01→23:45)
[2018-01-09] MEDS: Metoclopramide 10 MG/2 ML VIAL IVP SCH ×5 (00:01→23:45)
[2018-01-09] MEDS: *HR* OxyCODONE/APAP 5/325 TABLET PO PRN ×4 (01:52→20:44)
[2018-01-09] MEDS: *HR* Heparin 5,000 UNIT/ML VIAL SQ SCH ×2 (06:05→17:32)
--- NOTE | 2018-01-09 06:47 | Cardiothoracic Progress Note ---
Date of Encounter: 01/09/18 Time of Encounter: 06:46 - Assessment and plan (1) CAD (coronary artery disease) Current Visit: Yes Status: Chronic The patient remained hemodynamically stable overnight. He is currently extubated and breathing comfortably. The chest tubes were removed. He will be transferred to the stepdown unit when a bed is available. The assessment and plan as outlined above was discussed with the patient and/or family members who expressed understanding and agreement. All questions were answered. Qualifiers: Coronary Disease-Associated Artery/Lesion type: [place] artery [place] vs. transplanted heart: [place] heart Associated angina: angina presence unspecified Qualified Code(s): I25.10 - Atherosclerotic heart disease of [place] coronary artery without angina pectoris - Subjective Procedure(s) Performed: POD#2 S/P CABG5 Interval history: The patient remained hemodynamic stable overnight. He is currently extubated and breathing comfortably. He has no complaints. Vital Signs, Last 4 Hours Temp Pulse Resp BP Pulse Ox 01/09/18 06:00 97 24 93 01/09/18 04:01 88 01/09/18 04:00 99.1 F 88 20 115/61 92 01/09/18 03:47 18 92 Oxgyen Flow Rate Oxygen Flow Rate (LPM) 2 Clinical Data, last 8 Hours Output, Chest Tube Drainage 4 Amount [Mediastinal #1] Output, Chest Tube Drainage 13 Amount [Mediastinal #1] Output, Chest Tube Drainage 20 Amount [Mediastinal #2] Output, Chest Tube Drainage 30 Amount [Mediastinal #2] Output, Chest Tube Drainage 10 Amount [Mediastinal #3] Output, Chest Tube Drainage 6 Amount [Mediastinal #3] Weight 01/07/18 01/08/18 01/09/18 23:59 23:59 23:59 Weight 99.019 kg - Physical Examination General: Conversant, No Apparent Distress Neck: No JVD, Normal carotid pulses Cardiac: Reg Rate and Rhythm, Normal S1 and S2, No Murmur Incision: No signs of infection, Dry/intact dressing Sternum: Stable Chest tubes: Minimal drainage, Other (No air leak) Pacing Wires: In place Lungs: Normal Breath Sounds, No Wheeze, Rales, Rhonchi Neuro: Alert and responsive, No focal deficits noted Vascular: Normal capillary refill Extremities: No Clubbing, No Cyanosis, No Edema, Normal Pulses - Labs 01/08/18 03:40 01/08/18 03:40 - VTE Reasons for not Prescribing Prophylaxis: Not indicated-Anticoagulated or INR therapeutic Documentation of Mechanical Device: Graduated compression elastic hosiery Consult Discharge Plan - Plan Referrals: Mary Bland CNP [Primary Care Provider] - Louis Price CNP [Family Provider] -
[2018-01-09] MEDS: Chlorhexidine Rinse 15 ML MOUTHWASH MM SCH ×2 (08:01→20:45)
[2018-01-09] MEDS: Furosemide 20 MG/2 ML VIAL IVP SCH ×2 (08:01→17:31)
[2018-01-09] MEDS: Lisinopril-HCTZ 20-12.5mg TABLET PO SCH (08:01)
[2018-01-09] MEDS: Pantoprazole 40 MG VIAL IVP SCH (08:01)
[2018-01-09] MEDS: *HR* Metformin 500 MG TABLET PO SCH ×2 (08:01→17:31)
[2018-01-09] MEDS: Insulin LISPRO 300 UNITS/3 ML VIAL SQ SCH ×7 (08:09→20:47)
[2018-01-09] MEDS: Aspirin Enteric Coated 81 MG Tablet PO SCH (08:10)
--- NOTE | 2018-01-09 09:47 | Internal Med Progress Note ---
<Desmond Yun - Last Filed: 01/09/18 16:18> Date of Encounter: 01/09/18 Time of Encounter: 08:15 - Assessment and plan (1) NSTEMI (non-ST elevated myocardial infarction) Current Visit: Yes Status: Acute Assessment and plan: Patient presented with chest pain Nnoted to have elevated troponins He was also noted to have uncontrolled hypertension Cardiology has been consulted, patient underwent left heart catheterization, which showed three-vessel disease, with a recommendation for CABG Echocardiogram showed 50% ejection fraction, mild segmental left ventricular systolic dysfunction, mild left ventricular diastolic dysfunction. Cardiothoracic surgery evaluated patient and he underwent CABG x5 on 01/07/18 Continued management per Cardiothoracic surgery (2) Diabetes mellitus Current Visit: Yes Status: Chronic Assessment and plan: Uncontrolled diabetes Hemoglobin A1c 10.1% Medical noncompliance noted Blood sugars noted to be elevated Patient currently NPO Started on basal insulin at 10 units of levemir daily once patient taking PO Patient started on 3 units TIDWM prandial insulin Continue sliding scale insulin at ACHS Qualifiers: Diabetes mellitus type: type 2 Diabetes mellitus intermediate card tender insulin use: without intermediate card tender use Diabetes mellitus complication status: with hyperglycemia Qualified Code(s): E11.65 - Type 2 diabetes mellitus with hyperglycemia (3) Noncompliance w/medication treatment due to intermit use of medication Current Visit: Yes Status: Chronic Assessment and plan: Patient found to have A1c of 10.1, previously on metformin and was admittedly taking it sporadically The importance of medication compliance was stressed patient (4) Fever Current Visit: Yes Status: Acute Assessment and plan: Patient has had several low-grade temperatures during his stay Patient had a temperature of 101.1 today Unknown source currently, patient asymptomatic aside from temperature Recommend Tylenol Full obtained UA Obtain respiratory panel We will observe patient closely for signs of infection, not sure if this is normal after surgery Consider other reasons for elevated temperature Qualifiers: Fever type: unspecified Qualified Code(s): R50.9 - Fever, unspecified (5) Hyperlipidemia Current Visit: Yes Status: Chronic Assessment and plan: Continue statin Will check lipid profile Recommend continuation of statin given coronary artery disease and uncontrolled diabetes Qualifiers: Hyperlipidemia type: unspecified Qualified Code(s): E78.5 - Hyperlipidemia , unspecified - Subjective Interval history: Patient is resting comfortably in bed. He is sleeping lately. He was a continued soreness in his chest long as sternotomy. Denies fever/chills, denies shortness of breath, denies cough. - Constitutional Vitals: Temp Pulse Resp BP Pulse Ox 99.5 F 97 16 97/59 92 01/09/18 08:00 01/09/18 08:29 01/09/18 08:29 01/09/18 08:29 01/09/18 08:29 General appearance: Present: cooperative, A&O X 3, pleasant, no acute distress, answers questions appropriately Exam: General: Cooperative, pleasant, no acute distress, alert and oriented 3, answers questions appropriately HEENT: Normocephalic, atraumatic, neck supple, trachea midline, Conjunctiva pink , sclera anicteric, oral mucosa moist Respiratory: No accessory muscle usage, clear to auscultation bilaterally, no wheezes/rhonchi/rails present CV/Chest: Regular rate and rhythm, S1 and S2 present, bandage in place over his sternotomy incision, chest tubes removed GI/abdominal: Nondistended, nontender, soft, normal bowel sounds, no peritoneal signs Extremities: No calf tenderness, no pedal edema appreciated, warm, lower extremity pulses palpable and symmetrical Neurological: Alert and oriented 3, no facial droop, no focal deficits Skin: Dry, intact, normal color Internal Medicine: Result - Labs CBC & Chem 7: 01/08/18 03:40 01/08/18 03:40 - ABG Interpretation ABG results: ABG ABG pH 7.40 pH Units (7.32-7.45) 01/07/18 18:57 ABG pCO2 40 mmHg (35-45) 01/07/18 18:57 ABG pO2 100 mmHg (85-104) D 01/07/18 18:57 ABG O2 Saturation 98 % (95-98) 01/07/18 18:57 PT/INR, D-dimer PT 14.6 Seconds (9.4-12.1) H 01/08/18 03:40 - VTE Reasons for not Prescribing Prophylaxis: Not indicated-Anticoagulated or INR therapeutic Documentation of Mechanical Device: Graduated compression elastic hosiery Consult Discharge Plan - Plan Referrals: Mary Bland [employer] [Primary Care Provider] - Louis Price CNP [Family Provider] - <Willian Perez H - Last Filed: 01/09/18 16:38> Date of Encounter: 01/09/18 - Assessment and plan (1) NSTEMI (non-ST elevated myocardial infarction) Current Visit: Yes Status: Acute (2) Diabetes mellitus Current Visit: Yes Status: Chronic Qualifiers: Diabetes mellitus type: type 2 Diabetes mellitus intermediate card tender insulin use: without assisted use Diabetes mellitus complication status: with hyperglycemia Qualified Code(s): E11.65 - Type 2 diabetes mellitus with hyperglycemia (3) Noncompliance w/medication treatment due to intermit use of medication Current Visit: Yes Status: Chronic (4) Fever Current Visit: Yes Status: Acute Qualifiers: Fever type: unspecified Qualified Code(s): R50.9 - Fever, unspecified (5) Hyperlipidemia Current Visit: Yes Status: Chronic Qualifiers: Hyperlipidemia type: unspecified Qualified Code(s): E78.5 - Hyperlipidemia , unspecified - Constitutional Vitals: Temp Pulse Resp BP Pulse Ox 101.1 F H 97 16 102/66 90 01/09/18 15:27 01/09/18 15:51 01/09/18 15:34 01/09/18 15:34 01/09/18 15:34 Internal Medicine: Result - Labs CBC & Chem 7: 01/08/18 03:40 01/08/18 03:40 - ABG Interpretation ABG results: ABG ABG pH 7.40 pH Units (7.32-7.45) 01/07/18 18:57 ABG pCO2 40 mmHg (35-45) 01/07/18 18:57 ABG pO2 100 mmHg (85-104) D 01/07/18 18:57 ABG O2 Saturation 98 % (95-98) 01/07/18 18:57 PT/INR, D-dimer PT 14.6 Seconds (9.4-12.1) H 01/08/18 03:40 - Attending Attestation Consulted for diabetes management The patient's hemoglobin A1c is 10.1 Started Levemir Added Humalog 3 units 3 times a day plus insulin sliding scale May restart metformin 500 mg twice a day as an outpatient and follow-up with primary care physician to increase dose. Fever, panculture, CXR acute blood loss anemia, due to surgical procedure, recheck in am We will defer further management to the primary team/Dr. Jj I examined this patient and my medical decision-making was reviewed with the Resident Physician. I agree with the documented findings, disposition and treatment plan as described except to the extent set forth below.
[2018-01-09] MEDS: Insulin DETEMIR 100 UNIT/ML X5UNITS SQ SCH (10:13)
[2018-01-09 18:32] LABS: Bilirubin,Urine Negative (Negative); Blood,Urine Trace (Negative); Clarity,Urine Clear (Clear); Color,Urine Yellow (Yellow); Glucose,Urine (UA) Normal (Normal); Ketones,Urine Negative (Negative); Leukocyte Esterase,Urine Negative (Negative); Nitrite,Urine Negative (Negative); PH,Urine 5.5 pH Units (5.0-8.0); Protein,Urine Negative (Neg-Trace); Specific Gravity,Urine 1.023 (1.010-1.025); Urobilinogen,Urine Normal (Normal)
[2018-01-09 18:34] LABS: Bacteria,Urine None Seen per hpf (None-Few); Hyaline Casts,Urine None Seen per lpf (None-Few); Squamous Epithelial Cell,Urine Many per lpf (None-Few); WBC,Urine 0-3 per hpf (0-3)
[2018-01-09 20:27] LABS: Adenovirus Not Detected (Not Detect); Bordetella Pertussis Not Detected (Not Detect); Chlamydophila pneumoniae Not Detected (Not Detect); Coronavirus 229E Not Detected (Not Detect); Coronavirus HKU1 Not Detected (Not Detect); Coronavirus NL63 Not Detected (Not Detect); Coronavirus OC43 Not Detected (Not Detect); Human Metapneumovirus Not Detected (Not Detect); Human Rhinovirus/Enterovirus Not Detected (Not Detect); Influenza A Subtype 2009 H1 Not Detected (Not Detect); Influenza A Untypeable Not Detected (Not Detect); Influenza B Not Detected (Not Detect); Mycoplasma pneumoniae Not Detected (Not Detect); Parainfluenza Virus 1 Not Detected (Not Detect); Parainfluenza Virus 2 Not Detected (Not Detect); Parainfluenza Virus 3 Not Detected (Not Detect); Parainfluenza Virus 4 Not Detected (Not Detect); Respiratory Syncytial Virus Not Detected (Not Detect)
[2018-01-10 03:53] LABS: Basophils % 0.2 %; Eosinophils # 0.1 K/mcL (0.0-0.6); Eosinophils % 1.3 %; Hematocrit 21.8 % (37.5-50.1); Hemoglobin 7.2 g/dL (12.9-16.9); Immature Granulocytes % 0.5 % (0-4); Lymphocytes # 1.8 K/mcL (0.6-4.6); Lymphocytes % 17.5 %; Mean Corpuscular Hemoglobin 27.7 pg (28.0-33.3); Mean Corpuscular Volume 83.8 fL (83.0-100.0); Mean Platelet Volume 11.4 fL (9.4-12.4); Monocytes # 0.8 K/mcL (0.0-1.3); Monocytes % 7.9 %; Neutrophils # 7.3 K/mcL (1.6-8.9); Platelet Count 149 K/mcL (140-400); Red Cell Distribution Width 13.9 % (11.5-14.5); Segmented Neutrophils % 72.6 %
[2018-01-10 04:53] LABS: BUN/Creatinine Ratio 32 (6-26); Blood Urea Nitrogen 37 mg/dL (6-20); Calcium 8.2 mg/dL (8.6-10.3); Carbon Dioxide 25 mEq/L (23-29); Chloride 104 mEq/L (98-107); Glucose 166 mg/dL (70-105); Osmolality,Calculated 292 (280-300); Potassium 3.1 mEq/L (3.5-5.1); Sodium 135 mEq/L (136-145); eGFR For African Americans > 60 (> 60); eGFR For Non-African Americans > 60 (> 60)
[2018-01-10] MEDS: Ketorolac 15 MG/ML VIAL IVP SCH ×3 (05:08→21:09)
[2018-01-10] MEDS: *HR* Heparin 5,000 UNIT/ML VIAL SQ SCH ×2 (05:08→17:23)
[2018-01-10] MEDS: Metoclopramide 10 MG/2 ML VIAL IVP SCH ×3 (06:26→21:08)
--- NOTE | 2018-01-10 08:39 | Cardiothoracic Progress Note ---
Date of Encounter: 01/10/18 Time of Encounter: 08:36 - Assessment and plan (1) NSTEMI (non-ST elevated myocardial infarction) Current Visit: Yes Status: Acute The assessment and plan as outlined above was discussed with the patient and/or family members who expressed understanding and agreement. All questions were answered. The patient has the usual, expected acute postoperative blood loss anemia and is symptomatic. I will order one unit of packed red blood cells. His potassium is 3.1 and we will order by mouth potassium. Hopefully, a floor bed will be available soon and he can be transferred out of the ICU. - Subjective Interval history: The patient has some lightheadedness and dizziness upon arising in needs help getting up. Vital Signs, Last 4 Hours Pulse Resp BP Pulse Ox 01/10/18 05:00 86 20 115/66 93 Oxgyen Flow Rate Oxygen Flow Rate (LPM) 2 Clinical Data, last 8 Hours Output, Urine Amount 250 Output, Urine Amount 0 Weight 01/08/18 01/09/18 01/10/18 23:59 23:59 23:59 Weight 99.019 kg 98.8 kg Lungs are clear to percussion and auscultation. Heart is in a normal sinus rhythm. All incisions are healing well without signs of infection and the sternum is stable. Chest x-ray reveals a small pneumothorax. - Labs 01/10/18 03:21 01/10/18 03:21 Lab Results, Last 24 hours 01/10/18 01/10/18 03:21 03:21 WBC 10.0 Hgb 7.2 L D Hct 21.8 L Plt Count 149 Sodium 135 L Potassium 3.1 L Chloride 104 Carbon Dioxide 25 BUN 37 H Creatinine 1.15 Glucose 166 H Calcium 8.2 L - VTE Reasons for not Prescribing Prophylaxis: Not indicated-Anticoagulated or INR therapeutic Documentation of Mechanical Device: Graduated compression elastic hosiery Consult Discharge Plan - Plan Referrals: Mary Bland CNP [Primary Care Provider] - Louis Price CNP [Family Provider] -
--- NOTE | 2018-01-10 08:43 | Internal Med Progress Note ---
<Desmond Yun - Last Filed: 01/10/18 08:48> Date of Encounter: 01/10/18 Time of Encounter: 08:30 - Assessment and plan (1) NSTEMI (non-ST elevated myocardial infarction) Current Visit: Yes Status: Acute Assessment and plan: Patient presented with chest pain Nnoted to have elevated troponins He was also noted to have uncontrolled hypertension Cardiology has been consulted, patient underwent left heart catheterization, which showed three-vessel disease, with a recommendation for CABG Echocardiogram showed 50% ejection fraction, mild segmental left ventricular systolic dysfunction, mild left ventricular diastolic dysfunction. Cardiothoracic surgery evaluated patient and he underwent CABG x5 on 01/07/18 Continued management per Cardiothoracic surgery (2) Diabetes mellitus Current Visit: Yes Status: Chronic Assessment and plan: Uncontrolled diabetes Hemoglobin A1c 10.1% Medical noncompliance noted Blood sugars noted to be elevated Patient currently NPO Started on basal insulin at 10 units of levemir daily once patient taking PO Patient started on 3 units TIDWM prandial insulin Continue sliding scale insulin at [facility] Qualifiers: Diabetes mellitus type: type 2 Diabetes mellitus tank terminal gauger insulin use: without tank terminal gauger use Diabetes mellitus complication status: with hyperglycemia Qualified Code(s): E11.65 - Type 2 diabetes mellitus with hyperglycemia (3) Noncompliance w/medication treatment due to intermit use of medication Current Visit: Yes Status: Chronic Assessment and plan: Patient found to have A1c of 10.1, previously on metformin and was admittedly taking it sporadically The importance of medication compliance was stressed patient (4) Fever Current Visit: Yes Status: Acute Assessment and plan: Patient has had several low-grade temperatures during his stay Patient had a temperature of 101.1 yesterday afternoon Given 1 dose of acetaminophen Has been afebrile since UA negative for suspected infection Respiratory infection panel negative Unknown source currently, patient asymptomatic aside from temperature Wait for results of blood cultures No sign of active infection currently, we will hold antibiotics Recommend patient continue to use incentive spirometer We will observe patient closely for signs of infection, not sure if this is normal after surgery Qualifiers: Fever type: unspecified Qualified Code(s): R50.9 - Fever, unspecified (5) Hyperlipidemia Current Visit: Yes Status: Chronic Assessment and plan: Continue statin Will check lipid profile Recommend continuation of statin given coronary artery disease and uncontrolled diabetes Qualifiers: Hyperlipidemia type: unspecified Qualified Code(s): E78.5 - Hyperlipidemia , unspecified - Subjective Interval history: Patient sitting in chair, having just eaten breakfast when seen today. He appears comfortable and in no acute distress. He does report having one episode of chills and one episode of diarrhea yesterday, but besides that is doing well. He denies having any fevers, chills, nausea, vomiting, continued diarrhea, blood in the stool, dysuria, hematuria, rashes, swelling, shortness of breath, cough, but some reports some continued chest tenderness at the site of sternotomy. - Constitutional Vitals: Temp Pulse Resp BP Pulse Ox 98.1 F 86 20 115/66 93 01/10/18 03:24 01/10/18 05:00 01/10/18 05:00 01/10/18 05:00 01/10/18 05:00 General appearance: Present: cooperative, A&O X 3, pleasant, no acute distress, answers questions appropriately Exam: General: Cooperative, pleasant, no acute distress, alert and oriented 3, answers questions appropriately HEENT: Normocephalic, atraumatic, neck supple, trachea midline, Conjunctiva pink , sclera anicteric, oral mucosa moist Respiratory: No accessory muscle usage, clear to auscultation bilaterally, no wheezes/rhonchi/rails present CV/Chest: Regular rate and rhythm, S1 and S2 present, 2/6 systolic murmur, bandage in place over his sternotomy incision, chest tubes removed GI/abdominal: Nondistended, nontender, soft, normal bowel sounds, no peritoneal signs Extremities: No calf tenderness, no pedal edema appreciated, warm, lower extremity pulses palpable and symmetrical Neurological: Alert and oriented 3, no facial droop, no focal deficits Skin: Dry, intact, normal color Internal Medicine: Result - Labs CBC & Chem 7: 01/10/18 03:21 01/10/18 03:21 Labs: Short CBC 01/10/18 Range/Units 03:21 WBC 10.0 (4.3-11.1) K/mcL Hgb 7.2 L D (12.9-16.9) g/dL Hct 21.8 L (37.5-50.1) % Plt Count 149 (140-400) K/mcL Neutrophils # 7.3 (1.6-8.9) K/mcL BMP 01/10/18 03:21 Sodium 135 L Potassium 3.1 L Chloride 104 Carbon Dioxide 25 BUN 37 H Creatinine 1.15 Glucose 166 H Calcium 8.2 L Urine 01/09/18 Range/Units 18:18 Urine Color Yellow (Yellow) Urine Clarity Clear (Clear) Urine pH 5.5 (5.0-8.0) pH Units Ur Specific [place] 1.023 (1.010-1.025) Urine Protein Negative (Neg-Trace) mg/dL Urine Glucose (UA) Normal (Normal) mg/dL - ABG Interpretation ABG results: ABG ABG pH 7.40 pH Units (7.32-7.45) 01/07/18 18:57 ABG pCO2 40 mmHg (35-45) 01/07/18 18:57 ABG pO2 100 mmHg (85-104) D 01/07/18 18:57 ABG O2 Saturation 98 % (95-98) 01/07/18 18:57 PT/INR, D-dimer PT 14.6 Seconds (9.4-12.1) H 01/08/18 03:40 - Impressions Impressions Chest X-Ray 01/10/18 06:00 IMPRESSION: Interval removal of Meridian-Jorge catheter and mediastinal and pleural drains. Interval development of small right pneumothorax measuring up to 1.8 cm in width. The findings were sent to the Radiology Results Communication Center at 6:24 am on 01/10/2018to be communicated to a licensed caregiver. D/ / Teja George MD / Teja George MD Interpreting Provider: Teja George MD - VTE Reasons for not Prescribing Prophylaxis: Not indicated-Anticoagulated or INR therapeutic Documentation of Mechanical Device: Graduated compression elastic hosiery Consult Discharge Plan - Plan Referrals: Mary Bland CNP [Primary Care Provider] - Louis Price CNP [Family Provider] - <Willian Perez H - Last Filed: 01/10/18 13:53> Date of Encounter: 01/10/18 - Assessment and plan (1) NSTEMI (non-ST elevated myocardial infarction) Current Visit: Yes Status: Acute - Constitutional Vitals: Temp Pulse Resp BP Pulse Ox 99.7 F H 74 20 123/74 97 01/10/18 09:30 01/10/18 11:30 01/10/18 11:30 01/10/18 11:30 01/10/18 11:30 Internal Medicine: Result - Labs CBC & Chem 7: 01/10/18 03:21 01/10/18 03:21 Labs: Short CBC 01/10/18 Range/Units 03:21 WBC 10.0 (4.3-11.1) K/mcL Hgb 7.2 L D (12.9-16.9) g/dL Hct 21.8 L (37.5-50.1) % Plt Count 149 (140-400) K/mcL Neutrophils # 7.3 (1.6-8.9) K/mcL BMP 01/10/18 03:21 Sodium 135 L Potassium 3.1 L Chloride 104 Carbon Dioxide 25 BUN 37 H Creatinine 1.15 Glucose 166 H Calcium 8.2 L Urine 01/09/18 Range/Units 18:18 Urine Color Yellow (Yellow) Urine Clarity Clear (Clear) Urine pH 5.5 (5.0-8.0) pH Units Ur Specific [place] 1.023 (1.010-1.025) Urine Protein Negative (Neg-Trace) mg/dL Urine Glucose (UA) Normal (Normal) mg/dL - ABG Interpretation ABG results: ABG ABG pH 7.40 pH Units (7.32-7.45) 01/07/18 18:57 ABG pCO2 40 mmHg (35-45) 01/07/18 18:57 ABG pO2 100 mmHg (85-104) D 01/07/18 18:57 ABG O2 Saturation 98 % (95-98) 01/07/18 18:57 PT/INR, D-dimer PT 14.6 Seconds (9.4-12.1) H 01/08/18 03:40 - Impressions Impressions Chest X-Ray 01/10/18 06:00 IMPRESSION: Interval removal of Meridian-Jorge catheter and mediastinal and pleural drains. Interval development of small right pneumothorax measuring up to 1.8 cm in width. The findings were sent to the Radiology Results Communication Center at 6:24 am on 01/10/2018to be communicated to a licensed caregiver. D/ / Teja George MD / Teja George MD Interpreting Provider: Teja George MD - Attending Attestation Consulted for diabetes management The patient's hemoglobin A1c is 10.1 continue Levemir 10 units Added Humalog 3 units 3 times a day plus insulin sliding scale May restart metformin 500 mg twice a day as an outpatient and follow-up with primary care physician to increase dose. acute blood loss anemia, due to surgical procedure, recheck in am We will defer further management to the primary team/Dr. Jj I examined this patient and my medical decision-making was reviewed with the Resident Physician. I agree with the documented findings, disposition and treatment plan as described except to the extent set forth below.
[2018-01-10] MEDS: Insulin DETEMIR 100 UNIT/ML X5UNITS SQ SCH (08:59)
[2018-01-10] MEDS: *HR* Metformin 500 MG TABLET PO SCH ×2 (09:00→17:10)
[2018-01-10] MEDS: Chlorhexidine Rinse 15 ML MOUTHWASH MM SCH ×2 (09:00→21:09)
[2018-01-10] MEDS: Pantoprazole 40 MG VIAL IVP SCH (09:00)
[2018-01-10] MEDS: Furosemide 20 MG/2 ML VIAL IVP SCH ×2 (09:00→17:11)
[2018-01-10] MEDS: Aspirin Enteric Coated 81 MG Tablet PO SCH (09:00)
[2018-01-10] MEDS: Lisinopril-HCTZ 20-12.5mg TABLET PO SCH (09:00)
[2018-01-10] MEDS: Insulin LISPRO 300 UNITS/3 ML VIAL SQ SCH ×7 (09:01→22:41)
[2018-01-10] MEDS ORDERED: 0.9 % Sodium Chloride 250 ML ONE (09:08)
[2018-01-10] MEDS: *HR* OxyCODONE/APAP 5/325 TABLET PO PRN (10:35)
[2018-01-11] MEDS: Ketorolac 15 MG/ML VIAL IVP SCH ×4 (00:23→17:12)
[2018-01-11] MEDS: *HR* OxyCODONE/APAP 5/325 TABLET PO PRN (00:23)
[2018-01-11 01:50] LABS: BUN/Creatinine Ratio 43 (6-26); Blood Urea Nitrogen 36 mg/dL (6-20); Calcium 8.4 mg/dL (8.6-10.3); Carbon Dioxide 25 mEq/L (23-29); Chloride 102 mEq/L (98-107); Glucose 154 mg/dL (70-105); Osmolality,Calculated 291 (280-300); Potassium 3.3 mEq/L (3.5-5.1); Sodium 135 mEq/L (136-145); eGFR For African Americans > 60 (> 60); eGFR For Non-African Americans > 60 (> 60)
[2018-01-11 01:59] LABS: Basophils % 0.3 %; Eosinophils # 0.5 K/mcL (0.0-0.6); Eosinophils % 5.4 %; Hematocrit 24.7 % (37.5-50.1); Hemoglobin 8.3 g/dL (12.9-16.9); Immature Granulocytes % 0.6 % (0-4); Lymphocytes # 1.2 K/mcL (0.6-4.6); Lymphocytes % 13.6 %; Mean Corpuscular HGB Conc 33.6 g/dL (31.6-35.5); Mean Corpuscular Volume 83.4 fL (83.0-100.0); Mean Platelet Volume 11.5 fL (9.4-12.4); Monocytes # 0.8 K/mcL (0.0-1.3); Monocytes % 8.3 %; Neutrophils # 6.5 K/mcL (1.6-8.9); Nucleated Red Blood Cells 0.2 /100 WBC (0); Platelet Count 176 K/mcL (140-400); Red Blood Count 2.96 M/mcL (4.19-5.50); Red Cell Distribution Width 13.7 % (11.5-14.5); Segmented Neutrophils % 71.8 %
[2018-01-11] MEDS: *HR* Heparin 5,000 UNIT/ML VIAL SQ SCH ×2 (05:26→17:12)
[2018-01-11] MEDS: Insulin LISPRO 300 UNITS/3 ML VIAL SQ SCH ×7 (08:07→21:21)
--- NOTE | 2018-01-11 08:21 | Internal Med Progress Note ---
<Desmond Yun - Last Filed: 01/11/18 11:28> Date of Encounter: 01/11/18 Time of Encounter: 08:00 - Assessment and plan (1) NSTEMI (non-ST elevated myocardial infarction) Current Visit: Yes Status: Acute Assessment and plan: Patient presented with chest pain Noted to have elevated troponins He was also noted to have uncontrolled hypertension Cardiology has been consulted, patient underwent left heart catheterization, which showed three-vessel disease, with a recommendation for CABG Echocardiogram showed 50% ejection fraction, mild segmental left ventricular systolic dysfunction, mild left ventricular diastolic dysfunction. Cardiothoracic surgery evaluated patient and he underwent CABG x5 on 01/07/18 Continued management per Cardiothoracic surgery (2) Diabetes mellitus Current Visit: Yes Status: Chronic Assessment and plan: Uncontrolled diabetes Hemoglobin A1c 10.1% Medical noncompliance noted Blood sugars noted to be elevated Patient currently starting to take more PO Due to patient taking more PO, sugars are starting to increase Will increase patient Levemir to 15 units Will increase prandial insulin to 5 units TIDWM Continue sliding scale insulin at [facility] Qualifiers: Diabetes mellitus type: type 2 Diabetes mellitus ad terminal makeup operator insulin use: without ad terminal makeup operator use Diabetes mellitus complication status: with hyperglycemia Qualified Code(s): E11.65 - Type 2 diabetes mellitus with hyperglycemia (3) Noncompliance w/medication treatment due to intermit use of medication Current Visit: Yes Status: Chronic Assessment and plan: Patient found to have A1c of 10.1, previously on metformin and was admittedly taking it sporadically The importance of medication compliance was stressed patient (4) Fever Current Visit: Yes Status: Acute Assessment and plan: Patient has had several low-grade temperatures during his stay Patient had a temperature of 101.1 on 01/09/18 Given 1 dose of acetaminophen at that time with improvement seen Has been afebrile since with mild elevations in temperature UA negative for suspected infection Respiratory infection panel negative Unknown source currently, patient asymptomatic aside from temperature Blood cultures drawn on 01/09/18 are preliminarily negative No sign of active infection currently, we will hold antibiotics Recommend patient continue to use incentive spirometer We will observe patient closely for signs of infection, not sure if this is normal after surgery Qualifiers: Fever type: unspecified Qualified Code(s): R50.9 - Fever, unspecified (5) Hyperlipidemia Current Visit: Yes Status: Chronic Assessment and plan: Continue statin Will check lipid profile Recommend continuation of statin given coronary artery disease and uncontrolled diabetes Qualifiers: Hyperlipidemia type: unspecified Qualified Code(s): E78.5 - Hyperlipidemia , unspecified - Subjective Interval history: Patient is resting in bed comfortably. He states he is about as fatigued as he has been. Yesterday he spent the entire day chair. He is not no acute distress. Appetite is improving. He has no new concerns/complaints today. States the pain along a sternotomy is improving. Denies having fever/chills, nausea, dyspnea, abdominal pain, dysuria. - Constitutional Vitals: Temp Pulse Resp BP Pulse Ox 98.0 F 75 16 110/59 93 01/11/18 07:09 01/11/18 07:09 01/11/18 07:09 01/11/18 07:09 01/11/18 07:09 General appearance: Present: cooperative, A&O X 3, pleasant, no acute distress, answers questions appropriately Exam: General: Cooperative, pleasant, no acute distress, alert and oriented 3, answers questions appropriately HEENT: Normocephalic, atraumatic, neck supple, trachea midline, Conjunctiva pink , sclera anicteric, oral mucosa moist Respiratory: No accessory muscle usage, clear to auscultation bilaterally, no wheezes/rhonchi/rails present CV/Chest: Regular rate and rhythm, S1 and S2 present, bandage/regular in place over his sternotomy incision GI/abdominal: Nondistended, nontender, soft, normal bowel sounds, no peritoneal signs Extremities: No calf tenderness, no pedal edema appreciated, warm, lower extremity pulses palpable and symmetrical Neurological: Alert and oriented 3, no facial droop, no focal deficits Skin: Dry, intact, normal color Internal Medicine: Result - Labs CBC & Chem 7: 01/11/18 01:10 01/11/18 01:10 Labs: Short CBC 01/11/18 Range/Units 01:10 WBC 9.0 (4.3-11.1) K/mcL Hgb 8.3 L (12.9-16.9) g/dL Hct 24.7 L (37.5-50.1) % Plt Count 176 (140-400) K/mcL Neutrophils # 6.5 (1.6-8.9) K/mcL BMP 01/11/18 01:10 Sodium 135 L Potassium 3.3 L Chloride 102 Carbon Dioxide 25 BUN 36 H Creatinine 0.84 Glucose 154 H Calcium 8.4 L - ABG Interpretation ABG results: ABG ABG pH 7.40 pH Units (7.32-7.45) 01/07/18 18:57 ABG pCO2 40 mmHg (35-45) 01/07/18 18:57 ABG pO2 100 mmHg (85-104) D 01/07/18 18:57 ABG O2 Saturation 98 % (95-98) 01/07/18 18:57 PT/INR, D-dimer PT 14.6 Seconds (9.4-12.1) H 01/08/18 03:40 - Impressions Impressions Chest X-Ray 01/08/18 04:00 IMPRESSION: 1. Interval removal of endotracheal and enteric tubes. Wheatcroft-Jroge catheter tip appears slightly advanced with the tip projecting over the right lower lobe pulmonary artery. 2. Right basilar atelectasis. Left basilar atelectasis appears slightly improved. D/ / 01/08/2018 08:56:39 Claire Farias MD / john Interpreting Provider: Claire Farias MD Chest X-Ray 01/11/18 00:01 IMPRESSION: 1. Right apical pneumothorax measures 1.8 cm. No mediastinal shift. 2. Pulmonary vascular congestion and mild pulmonary edema. 3. Hypoinflated lungs and bibasilar atelectasis. The findings were sent to the Radiology Results Communication Center at 6:54 am on 01/11/2018to be communicated to a licensed caregiver. D/ / Eugenie Byers MD / Eugenie Byers MD Interpreting Provider: Eugenie Byers MD - VTE Reasons for not Prescribing Prophylaxis: Not indicated-Anticoagulated or INR therapeutic Documentation of Mechanical Device: Graduated compression elastic hosiery Consult Discharge Plan - Plan Referrals: Baldo,Ali N, SEMIAUTOMATIC STITCHER OPERATOR [Primary Care Provider] - 01/18/18 9:00 am Rommel Henriquez CNP [Advanced Practice Nurse] - (OFFICE WILL CALL PATIENT AT HOME WITH FOLLOW UP APPOINTMENT) Simona Jj MD [Partnered Physician] - 02/08/18 1:00 pm <Willian Perez Odell - Last Filed: 01/11/18 13:02> Date of Encounter: 01/11/18 - Assessment and plan (1) NSTEMI (non-ST elevated myocardial infarction) Current Visit: Yes Status: Acute - Constitutional Vitals: Temp Pulse Resp BP Pulse Ox 98.0 F 75 17 97/65 94 01/11/18 11:54 01/11/18 11:54 01/11/18 11:54 01/11/18 11:54 01/11/18 11:54 Internal Medicine: Result - Labs CBC & Chem 7: 01/11/18 01:10 01/11/18 01:10 Labs: Short CBC 01/11/18 Range/Units 01:10 WBC 9.0 (4.3-11.1) K/mcL Hgb 8.3 L (12.9-16.9) g/dL Hct 24.7 L (37.5-50.1) % Plt Count 176 (140-400) K/mcL Neutrophils # 6.5 (1.6-8.9) K/mcL BMP 01/11/18 01:10 Sodium 135 L Potassium 3.3 L Chloride 102 Carbon Dioxide 25 BUN 36 H Creatinine 0.84 Glucose 154 H Calcium 8.4 L - ABG Interpretation ABG results: ABG ABG pH 7.40 pH Units (7.32-7.45) 01/07/18 18:57 ABG pCO2 40 mmHg (35-45) 01/07/18 18:57 ABG pO2 100 mmHg (85-104) D 01/07/18 18:57 ABG O2 Saturation 98 % (95-98) 01/07/18 18:57 PT/INR, D-dimer PT 14.6 Seconds (9.4-12.1) H 01/08/18 03:40 - Impressions Impressions Chest X-Ray 01/08/18 04:00 IMPRESSION: 1. Interval removal of endotracheal and enteric tubes. Wheatcroft-Jorge catheter tip appears slightly advanced with the tip projecting over the right lower lobe pulmonary artery. 2. Right basilar atelectasis. Left basilar atelectasis appears slightly improved. D/ / 01/08/2018 08:56:39 Claire Farias MD / john Interpreting Provider: Claire Farias MD Chest X-Ray 01/11/18 00:01 IMPRESSION: 1. Right apical pneumothorax measures 1.8 cm. No mediastinal shift. 2. Pulmonary vascular congestion and mild pulmonary edema. 3. Hypoinflated lungs and bibasilar atelectasis. The findings were sent to the Radiology Results Communication Center at 6:54 am on 01/11/2018to be communicated to a licensed caregiver. D/ / Eugenie Byers MD / Eugenie Byers MD Interpreting Provider: Eugenie Byers MD - Attending Attestation Consulted for diabetes management The patient's hemoglobin A1c is 10.1 increase Levemir to 15 units qhs increase Humalog to 5 units 3 times a day plus insulin sliding scale May restart metformin 500 mg twice a day as an outpatient and follow-up with primary care physician to increase dose. acute blood loss anemia, due to surgical procedure We will defer further management to the primary team/Dr. Jj I examined this patient and my medical decision-making was reviewed with the Resident Physician. I agree with the documented findings, disposition and treatment plan as described except to the extent set forth below.
[2018-01-11] MEDS: Chlorhexidine Rinse 15 ML MOUTHWASH MM SCH ×2 (09:03→21:21)
[2018-01-11] MEDS: Lisinopril-HCTZ 20-12.5mg TABLET PO SCH (09:03)
[2018-01-11] MEDS: Insulin DETEMIR 100 UNIT/ML X5UNITS SQ SCH (09:03)
[2018-01-11] MEDS: Furosemide 20 MG/2 ML VIAL IVP SCH (09:03)
[2018-01-11] MEDS: Pantoprazole 40 MG VIAL IVP SCH (09:03)
[2018-01-11] MEDS: *HR* Metformin 500 MG TABLET PO SCH ×2 (09:04→17:12)
[2018-01-11] MEDS: Aspirin Enteric Coated 81 MG Tablet PO SCH (09:04)
--- NOTE | 2018-01-11 09:33 | Cardiothoracic Progress Note ---
Date of Encounter: 01/11/18 Time of Encounter: 09:32 - Assessment and plan (1) NSTEMI (non-ST elevated myocardial infarction) Current Visit: Yes Status: Acute Hopefully, the patient can be discharged to home in the next day or 2. - Subjective Interval history: The patient has no complaints and is beginning to ambulate. Vital Signs, Last 4 Hours Temp Pulse Resp BP Pulse Ox 01/11/18 08:30 16 93 01/11/18 07:09 98.0 F 75 16 110/59 93 Oxgyen Flow Rate Oxygen Flow Rate (LPM) 2 Weight 01/09/18 01/10/18 01/11/18 23:59 23:59 23:59 Weight 99.019 kg 98.8 kg Lungs are clear to percussion and auscultation. Heart is in a normal sinus rhythm. All incisions are healing well without signs of infection and the sternum is stable. - Labs 01/11/18 01:10 01/11/18 01:10 Lab Results, Last 24 hours 01/11/18 01/11/18 01:10 01:10 WBC 9.0 Hgb 8.3 L Hct 24.7 L Plt Count 176 Sodium 135 L Potassium 3.3 L Chloride 102 Carbon Dioxide 25 BUN 36 H Creatinine 0.84 Glucose 154 H Calcium 8.4 L - VTE Reasons for not Prescribing Prophylaxis: Not indicated-Anticoagulated or INR therapeutic Documentation of Mechanical Device: Graduated compression elastic hosiery Consult Discharge Plan - Plan Referrals: Mary Bland CNP [Primary Care Provider] - 01/18/18 9:00 am Rommel Henriquez CNP [Advanced Practice Nurse] - (OFFICE WILL CALL PATIENT AT HOME WITH FOLLOW UP APPOINTMENT) Simona Jj MD [Partnered Physician] - 02/08/18 1:00 pm
[2018-01-11] MEDS ORDERED: Insulin DETEMIR 100 UNIT/ML X5UNITS SQ SCH (11:30)
[2018-01-12] MEDS: Ketorolac 15 MG/ML VIAL IVP SCH ×4 (00:37→17:09)
[2018-01-12 04:44] LABS: Basophils % 0.5 %; Eosinophils # 0.7 K/mcL (0.0-0.6); Eosinophils % 8.7 %; Hematocrit 24.6 % (37.5-50.1); Hemoglobin 8.3 g/dL (12.9-16.9); Immature Granulocytes % 0.7 % (0-4); Lymphocytes # 1.5 K/mcL (0.6-4.6); Lymphocytes % 19.6 %; Mean Corpuscular HGB Conc 33.7 g/dL (31.6-35.5); Mean Corpuscular Hemoglobin 27.8 pg (28.0-33.3); Mean Corpuscular Volume 82.3 fL (83.0-100.0); Mean Platelet Volume 10.3 fL (9.4-12.4); Monocytes # 0.7 K/mcL (0.0-1.3); Monocytes % 8.8 %; Neutrophils # 4.7 K/mcL (1.6-8.9); Platelet Count 196 K/mcL (140-400); Red Blood Count 2.99 M/mcL (4.19-5.50); Red Cell Distribution Width 13.6 % (11.5-14.5); Segmented Neutrophils % 61.7 %
[2018-01-12 04:58] LABS: BUN/Creatinine Ratio 36 (6-26); Blood Urea Nitrogen 33 mg/dL (6-20); Calcium 8.7 mg/dL (8.6-10.3); Carbon Dioxide 27 mEq/L (23-29); Chloride 102 mEq/L (98-107); Chol/HDL Ratio 4.7 (0-4.9); Glucose 103 mg/dL (70-105); Osmolality,Calculated 292 (280-300); Potassium 3.2 mEq/L (3.5-5.1); Sodium 137 mEq/L (136-145); eGFR For African Americans > 60 (> 60); eGFR For Non-African Americans > 60 (> 60)
[2018-01-12] MEDS: *HR* Heparin 5,000 UNIT/ML VIAL SQ SCH ×2 (06:30→17:09)
[2018-01-12] MEDS: Insulin LISPRO 300 UNITS/3 ML VIAL SQ SCH ×6 (07:56→16:49)
[2018-01-12] MEDS: Chlorhexidine Rinse 15 ML MOUTHWASH MM SCH ×2 (08:02→21:42)
[2018-01-12] MEDS: Aspirin Enteric Coated 81 MG Tablet PO SCH (08:03)
[2018-01-12] MEDS: *HR* Metformin 500 MG TABLET PO SCH ×2 (08:03→17:09)
[2018-01-12] MEDS: Lisinopril-HCTZ 20-12.5mg TABLET PO SCH (08:03)
--- NOTE | 2018-01-12 09:04 | Internal Med Progress Note ---
<Desmond Yun - Last Filed: 01/12/18 08:58> Date of Encounter: 01/12/18 Time of Encounter: 08:45 - Assessment and plan (1) NSTEMI (non-ST elevated myocardial infarction) Current Visit: Yes Status: Acute Assessment and plan: Patient presented with chest pain Noted to have elevated troponins He was also noted to have uncontrolled hypertension Cardiology has been consulted, patient underwent left heart catheterization, which showed three-vessel disease, with a recommendation for CABG Echocardiogram showed 50% ejection fraction, mild segmental left ventricular systolic dysfunction, mild left ventricular diastolic dysfunction. Cardiothoracic surgery evaluated patient and he underwent CABG x5 on 01/07/18 Continued management per Cardiothoracic surgery (2) Diabetes mellitus Current Visit: Yes Status: Chronic Assessment and plan: Uncontrolled diabetes Hemoglobin A1c 10.1% Medical noncompliance noted Blood sugars better controlled today Patient currently starting to take more PO Due to patient taking more PO, sugars are starting to increase Continue Levemir to 15 units Continue prandial insulin to 5 units TIDWM Continue sliding scale insulin at [facility] Qualifiers: Diabetes mellitus type: type 2 Diabetes mellitus medical terminologist insulin use: without medical terminologist use Diabetes mellitus complication status: with hyperglycemia Qualified Code(s): E11.65 - Type 2 diabetes mellitus with hyperglycemia (3) Noncompliance w/medication treatment due to intermit use of medication Current Visit: Yes Status: Chronic Assessment and plan: Patient found to have A1c of 10.1, previously on metformin and was admittedly taking it sporadically The importance of medication compliance was stressed patient (4) Fever Current Visit: Yes Status: Resolved Assessment and plan: Resolved Patient has had several low-grade temperatures during his stay Patient had a temperature of 101.1 on 01/09/18 Given 1 dose of acetaminophen at that time with improvement seen Has been afebrile since with mild elevations in temperature UA negative for suspected infection Respiratory infection panel negative Unknown source currently, patient asymptomatic aside from temperature Blood cultures drawn on 01/09/18 are preliminarily negative No sign of active infection currently, we will hold antibiotics Recommend patient continue to use incentive spirometer No signs of active infection present Qualifiers: Fever type: unspecified Qualified Code(s): R50.9 - Fever, unspecified (5) Hyperlipidemia Current Visit: Yes Status: Chronic Assessment and plan: Continue statin Will check lipid profile Recommend continuation of statin given coronary artery disease and uncontrolled diabetes Qualifiers: Hyperlipidemia type: unspecified Qualified Code(s): E78.5 - Hyperlipidemia , unspecified - Subjective Interval history: Patient is doing well this morning, sitting in his chair comfortably. His breakfast is half eaten. He reports some continued mild discomfort along a sternotomy, other than that he has no concerns/complaints. No fever/chills, no diaphoresis, no shortness of breath, no cough, no dysuria, no diarrhea and no constipation. - Constitutional Vitals: Temp Pulse Resp BP Pulse Ox 98.8 F 78 16 118/76 93 01/12/18 07:36 01/12/18 08:10 01/12/18 07:46 01/12/18 07:36 01/12/18 07:46 General appearance: Present: cooperative, A&O X 3, pleasant, no acute distress, answers questions appropriately Exam: General: Cooperative, pleasant, no acute distress, alert and oriented 3, answers questions appropriately HEENT: Normocephalic, atraumatic, neck supple, trachea midline, Conjunctiva pink , sclera anicteric, oral mucosa moist Respiratory: No accessory muscle usage, clear to auscultation bilaterally, no wheezes/rhonchi/rails present CV/Chest: Regular rate and rhythm, S1 and S2 present, bandage/wound vac in place over his sternotomy incision GI/abdominal: Nondistended, nontender, soft, normal bowel sounds, no peritoneal signs Extremities: No calf tenderness, no pedal edema appreciated, warm, lower extremity pulses palpable and symmetrical Neurological: Alert and oriented 3, no facial droop, no focal deficits Skin: Dry, intact, normal color Internal Medicine: Result - Labs CBC & Chem 7: 01/12/18 04:24 01/12/18 04:24 Labs: Short CBC 01/12/18 Range/Units 04:24 WBC 7.6 (4.3-11.1) K/mcL Hgb 8.3 L (12.9-16.9) g/dL Hct 24.6 L (37.5-50.1) % Plt Count 196 (140-400) K/mcL Neutrophils # 4.7 (1.6-8.9) K/mcL BMP 01/12/18 04:24 Sodium 137 Potassium 3.2 L Chloride 102 Carbon Dioxide 27 BUN 33 H Creatinine 0.92 Glucose 103 Calcium 8.7 - ABG Interpretation ABG results: ABG ABG pH 7.40 pH Units (7.32-7.45) 01/07/18 18:57 ABG pCO2 40 mmHg (35-45) 01/07/18 18:57 ABG pO2 100 mmHg (85-104) D 01/07/18 18:57 ABG O2 Saturation 98 % (95-98) 01/07/18 18:57 PT/INR, D-dimer PT 14.6 Seconds (9.4-12.1) H 01/08/18 03:40 - VTE Reasons for not Prescribing Prophylaxis: Not indicated-Anticoagulated or INR therapeutic Documentation of Mechanical Device: Graduated compression elastic hosiery Consult Discharge Plan - Plan Referrals: Mary Bland CNP [Primary Care Provider] - 01/18/18 9:00 am Rommel Henriquez CNP [Advanced Practice Nurse] - (OFFICE WILL CALL PATIENT AT HOME WITH FOLLOW UP APPOINTMENT) Simona Jj MD [Partnered Physician] - 02/08/18 1:00 pm <Willian Perez H - Last Filed: 01/12/18 16:24> Date of Encounter: 01/12/18 - Assessment and plan (1) NSTEMI (non-ST elevated myocardial infarction) Current Visit: Yes Status: Acute - Constitutional Vitals: Temp Pulse Resp BP Pulse Ox 98.4 F 70 18 114/64 92 01/12/18 16:09 01/12/18 16:09 01/12/18 16:15 01/12/18 16:09 01/12/18 16:15 Internal Medicine: Result - Labs CBC & Chem 7: 01/12/18 04:24 01/12/18 04:24 Labs: Short CBC 01/12/18 Range/Units 04:24 WBC 7.6 (4.3-11.1) K/mcL Hgb 8.3 L (12.9-16.9) g/dL Hct 24.6 L (37.5-50.1) % Plt Count 196 (140-400) K/mcL Neutrophils # 4.7 (1.6-8.9) K/mcL BMP 01/12/18 04:24 Sodium 137 Potassium 3.2 L Chloride 102 Carbon Dioxide 27 BUN 33 H Creatinine 0.92 Glucose 103 Calcium 8.7 - ABG Interpretation ABG results: ABG ABG pH 7.40 pH Units (7.32-7.45) 01/07/18 18:57 ABG pCO2 40 mmHg (35-45) 03 18:57 ABG pO2 100 mmHg (85-104) D 01/07/18 18:57 ABG O2 Saturation 98 % (95-98) 01/07/18 18:57 PT/INR, D-dimer PT 14.6 Seconds (9.4-12.1) H 01/08/18 03:40 - Attending Attestation Consulted for diabetes management The patient's hemoglobin A1c is 10.1 continue Levemir to 15 units qhs continue Humalog to 5 units 3 times a day plus insulin sliding scale continue metformin 500 mg twice a day as an outpatient and follow-up with primary care physician to increase dose. acute blood loss anemia, due to surgical procedure We will defer further management to the primary team/Dr. Jj I examined this patient and my medical decision-making was reviewed with the Resident Physician. I agree with the documented findings, disposition and treatment plan as described except to the extent set forth below.
--- NOTE | 2018-01-12 09:14 | Cardiothoracic Progress Note ---
Date of Encounter: 01/12/18 Time of Encounter: 09:12 - Assessment and plan (1) NSTEMI (non-ST elevated myocardial infarction) Current Visit: Yes Status: Acute We will plan to discharge the patient to home tomorrow. - Subjective Interval history: The patient has been ambulating and has no complaints. Vital Signs, Last 4 Hours Temp Pulse Resp BP Pulse Ox 01/12/18 08:10 78 01/12/18 07:46 16 93 01/12/18 07:36 98.8 F 71 15 118/76 96 Oxgyen Flow Rate Oxygen Flow Rate (LPM) 1 Weight 01/10/18 01/11/18 01/12/18 23:59 23:59 23:59 Weight 98.8 kg 99.2 kg Lungs are clear to percussion and auscultation. Heart is in a normal sinus rhythm. All incisions are healing well without signs of infection and the sternum is stable. - Labs 01/12/18 04:24 01/12/18 04:24 Lab Results, Last 24 hours 01/12/18 01/12/18 04:24 04:24 WBC 7.6 Hgb 8.3 L Hct 24.6 L Plt Count 196 Sodium 137 Potassium 3.2 L Chloride 102 Carbon Dioxide 27 BUN 33 H Creatinine 0.92 Glucose 103 Calcium 8.7 - VTE Reasons for not Prescribing Prophylaxis: Not indicated-Anticoagulated or INR therapeutic Documentation of Mechanical Device: Graduated compression elastic hosiery Consult Discharge Plan - Plan Referrals: Mary Bland CNP [Primary Care Provider] - 01/18/18 9:00 am Rommel Henriquez CNP [Advanced Practice Nurse] - (OFFICE WILL CALL PATIENT AT HOME WITH FOLLOW UP APPOINTMENT) Simona Jj MD [Partnered Physician] - 02/08/18 1:00 pm
[2018-01-12] MEDS: *HR* OxyCODONE/APAP 5/325 TABLET PO PRN ×2 (16:39→21:41)
[2018-01-12] MEDS ORDERED: Insulin DETEMIR 100 UNIT/ML X5UNITS SQ SCH (21:00)
[2018-01-13 03:58] LABS: Basophils # 0.1 K/mcL (0.0-0.2); Basophils % 0.8 %; Eosinophils # 0.8 K/mcL (0.0-0.6); Hematocrit 24.2 % (37.5-50.1); Hemoglobin 8.3 g/dL (12.9-16.9); Immature Granulocytes % 1.1 % (0-4); Lymphocytes # 1.6 K/mcL (0.6-4.6); Lymphocytes % 22.1 %; Mean Corpuscular HGB Conc 34.3 g/dL (31.6-35.5); Mean Corpuscular Hemoglobin 28.2 pg (28.0-33.3); Mean Corpuscular Volume 82.3 fL (83.0-100.0); Mean Platelet Volume 10.6 fL (9.4-12.4); Monocytes # 0.6 K/mcL (0.0-1.3); Monocytes % 8.5 %; Neutrophils # 4.1 K/mcL (1.6-8.9); Platelet Count 216 K/mcL (140-400); Red Blood Count 2.94 M/mcL (4.19-5.50); Red Cell Distribution Width 13.6 % (11.5-14.5); Segmented Neutrophils % 56.5 %
[2018-01-13 04:24] LABS: BUN/Creatinine Ratio 36 (6-26); Blood Urea Nitrogen 33 mg/dL (6-20); Calcium 8.6 mg/dL (8.6-10.3); Carbon Dioxide 27 mEq/L (23-29); Chloride 102 mEq/L (98-107); Glucose 106 mg/dL (70-105); Osmolality,Calculated 292 (280-300); Potassium 3.7 mEq/L (3.5-5.1); Sodium 137 mEq/L (136-145); eGFR For African Americans > 60 (> 60); eGFR For Non-African Americans > 60 (> 60)
[2018-01-13] MEDS: Insulin LISPRO 300 UNITS/3 ML VIAL SQ SCH ×5 (06:12→12:04)
[2018-01-13] MEDS: *HR* Heparin 5,000 UNIT/ML VIAL SQ SCH (06:32)
[2018-01-13] MEDS: Lisinopril-HCTZ 20-12.5mg TABLET PO SCH (07:59)
[2018-01-13] MEDS: Chlorhexidine Rinse 15 ML MOUTHWASH MM SCH (07:59)
[2018-01-13] MEDS: Aspirin Enteric Coated 81 MG Tablet PO SCH (08:00)
[2018-01-13] MEDS: *HR* Metformin 500 MG TABLET PO SCH (08:00)
[2018-01-13] MEDS: *HR* OxyCODONE/APAP 5/325 TABLET PO PRN (09:04)
--- NOTE | 2018-01-13 09:26 | Discharge Summary ---
Orders not resulted at time of discharge: Pending orders 01/06/18 09:38 Red Blood Cells [BBK] Routine Type and Screen [BBK] Routine 01/09/18 17:14 Culture,Blood,Additional [BC] Routine Date of Encounter: 01/13/18 Time of Encounter: 09:19 - Discharge Diagnosis (1) NSTEMI (non-ST elevated myocardial infarction) Priority: Primary Status: Acute - Hospital Course Hospital course: Mr. Rivera is a 47 year old male The patient is a 47-year-old gentleman with a history of type 2 diabetes. He presented with an acute non-ST elevation HI. Cardiac catheterization revealed severe coronary artery disease and he was referred for surgery. On 01/07/2018, Dr. Jj took the patient to the operating room for coronary artery bypass grafting 5, utilizing the left internal mammary artery. On January 08 transfer orders were written. On January 09 his chest tubes were removed. Chest x-ray revealed a small apical pneumothorax that was stable over 3 different chest x- rays. On January 10, he received 1 unit of packed red blood cells. He did have the usual, expected acute postoperative blood loss anemia. The patient otherwise did well and was discharged on January 13. At that time, he was afebrile. Lungs were clear to percussion and auscultation. Heart was in a normal sinus rhythm. All incisions were healing well without signs of infection and the sternum was stable. Discharge medications are on the med rec in include narcotics for pain. He was postoperative and was given a one-week supply. I did check the [place] automated Rx reporting system. Appropriate precautions were given. He was to return to his previous and regular diabetic diet. He was to avoid heavy lifting for a total of 3 months after surgery, but to walk as much as possible. He was to avoid driving for 1 month. He was to follow up and see Dr. Jj in the office in 4 weeks as directed. 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 He was to call sooner for any difficulties. - Time Spent with Patient Total time spent providing and/or coordinating discharge services: - Discharge Medications Prescriptions: OxyCODONE/APAP 5/325 [Percocet 5/325 MG] 1 each PO Q4HR PRN 7 Days #20 tablet MDD 4 PRN Reason: Severe Pain Aspirin Enteric Coated [Aspirin EC] 81 mg PO DAILY #60 tablet. Atorvastatin [Lipitor] 80 mg PO HS #30 tablet Metoprolol [Lopressor] 25 mg PO BID #60 tablet Home Medications: Metformin HCl [Fortamet] 500 mg PO BID 01/04/18 [History] Lisinopril-HCTZ 20-12.5 [Prinzide 20-12.5] 1 tab PO DAILY 01/05/18 [History] Omeprazole [PriLOSEC] 20 mg PO DAILY 01/05/18 [History] Aspirin Enteric Coated [Aspirin EC] 81 mg PO DAILY #60 tablet. 01/13/18 [Rx] Atorvastatin [Lipitor] 80 mg PO HS #30 tablet 01/13/18 [Rx] Metoprolol [Lopressor] 25 mg PO BID #60 tablet 01/13/18 [Rx] OxyCODONE/APAP 5/325 [Percocet 5/325 MG] 1 each PO Q4HR PRN 7 Days #20 tablet MDD 4 01/13/18 [Rx] Allergies/Adverse Reactions: 3 Allergy/AdvReac Type Severity Reaction Status Date / Time No Known Allergies Allergy Verified 01/05/18 09:12 Date of admission: 01/05/18 06:07 Primary care physician: Mary Bland CNP Consults: 01/05/18 04:14 Consult to Diabetes Education [CONS] Routine Comment: Reason for Consult: poor control of DM 01/05/18 04:34 Consult to Cardiology [CONS] Routine Comment: Consulting Provider: Cardiology Tricia Reason for Consult: atypical chest pain, elevated troponin Call Completed: No 01/06/18 08:09 Consult to Cardiothoracic Surgery [CONS] Routine Consulting Provider: Cardiothoracic Surgery Shidler Reason for Consult: 3 vessel CAD Call Completed: Yes 01/06/18 08:10 Consult to Cardiac Rehabilitation-Phase1 [CONS] Routine Comment: Reason for Consult: NSTEMI Call Completed: No 01/07/18 13:22 Consult to Cardiac Rehabilitation-Phase1 [CONS] Routine Comment: Reason for Consult: Post open heart Call Completed: Yes Procedure(s) Performed: 01/07/2018. Coronary artery bypass grafting 5, utilizing the left internal mammary artery. Discharging clinician: [place] Anticipated date of discharge: 01/13/18 Physical Examination Vital Signs, Last 4 Hours Temp Pulse Resp BP Pulse Ox 01/13/18 08:14 16 93 01/13/18 08:06 68 01/13/18 07:46 98.2 F 69 14 124/68 93 - Patient Status Disposition: Home, Self-Care Condition: Fair Functional capacity at discharge: independent ambulation Overall status at discharge: patient is progressing back to baseline - Discharge Instructions Follow Up With: Mary Bland CNP [Primary Care Provider] - 01/18/18 9:00 am Rommel Henriquez ORNAMENTER [Advanced Practice Nurse] - (OFFICE WILL CALL PATIENT AT HOME WITH FOLLOW UP APPOINTMENT) Simona Jj MD [Partnered Physician] - 02/08/18 1:00 pm [facility] Aspirin Cont/Prescribed at DC: Yes Beta Eddi Cont/Prescribed at DC: Yes Statin Cont/Prescribed at DC: Yes DIO/ARB Cont/Prescribed at DC: Yes - VTE Reasons for not Prescribing Prophylaxis: Not indicated-Anticoagulated or INR therapeutic Documentation of Mechanical Device: Graduated compression elastic hosiery
--- NOTE | 2018-01-13 09:37 | Event Note ---
<Dillan Martinez - Last Filed: 01/13/18 09:35> Date of Encounter: 01/13/18 Time of Encounter: 09:35 Patient being discharged today. Will be d/c on metformin 750mg BID and glipizide 2.5mg daily and follow up with PCP with further diabetic monitoring. <Jose Roberto Jacobo - Last Filed: 01/13/18 13:50> Date of Encounter: 01/13/18 Time of Encounter: 10:20
[2018-01-13 12:07] VITALS: BP 110/65
== END 2018-01-13 13:33 | disposition home or self-care (01) | DRG 165 ==
LOC: 2ANU → SUATTDRO 01-05 06:07 → ICNU 01-07 10:14 → 2NNU 01-10 18:48
PROVIDERS: ADMIT Pediatrics; ATTEND Thoracic Surgery (Cardiothoracic Vascular Surgery)